=== PATIENT | female | born 1970 | race Caucasian/White ===

== ENCOUNTER 2018-08-29 00:20 | Inpatient (IN) | payer MEDICARE, MEDICAID ==
[~2018-08-29] VITALS: Ht 162.6 cm; Wt 110.7 kg
[2018-08-29] MEDS ORDERED: ASPIRIN 81MG TABLET PO ONE (00:45)
[2018-08-29] MEDS: NITROGLYCERIN 0.4MG TABLET SL SL PRN ×2 (00:51→00:56)
[2018-08-29 01:13] LABS: CHLORIDE 113 mEq/L (98-107); HEMATOCRIT. 29.4 % (36.0-48.0); HEMOGLOBIN. 9.8 g/dL (12.0-16.0); MEAN CORPUSCULAR HEMOGLOBIN 30.3 pg (28.0-32.0); MEAN CORPUSCULAR VOLUME 90.7 fL (81.0-99.0); MEAN PLATELET VOLUME 8.4 fl (7.4-10.4); PLATELET 183 x1000/uL (130-400); RED BLOOD CELL COUNT 3.24 mill/uL (4.2-5.4); RED CELL DISTRIBUTION WIDTH 15.3 % (11.6-14.6)
[2018-08-29 01:14] LABS: BASOPHILS % 1.1 % (0.0-2.0); EOSINOPHILS % 1.9 % (0.0-5.0); LYMPHOCYTES % 39.4 % (20.0-50.0); MONOCYTES % 9.2 % (2.0-8.0); NEUTROPHILS % 48.4 % (40.0-76.0)
[2018-08-29 02:08] LABS: *AMPHETAMINES SCREEN URINE NEGATIVE (NEGATIVE); *BARBITURATES SCREEN URINE NEGATIVE (NEGATIVE); *BENZODIAZEPINES SCREEN URINE NEGATIVE (NEGATIVE); *COCAINE SCREEN URINE NEGATIVE (NEGATIVE)
[2018-08-29 02:09] LABS: CANNABINOID URINE SCREEN NEGATIVE (NEGATIVE); METHADONE URINE SCREEN NEGATIVE (NEGATIVE); OPIATES URINE SCREEN NEGATIVE (NEGATIVE); PHENCYCLIDINE URINE SCREEN NEGATIVE (NEGATIVE)
[2018-08-29] MEDS ORDERED: SODIUM CHLORIDE 0.9% 1,000 ML IV NR (02:15)
[2018-08-29 04:00] VITALS: BP 157/109
[2018-08-29 04:30] VITALS: BP 155/99
[2018-08-29] MEDS ORDERED: LORAZEPAM 1MG TABLET PO PRN (05:15)
[2018-08-29] MEDS ORDERED: NITROGLYCERIN 0.4MG TABLET SL SL PRN (05:15)
[2018-08-29] MEDS ORDERED: DEXTROSE 50% WATER 50ML SYRINGE IV PRN (05:15)
[2018-08-29] MEDS ORDERED: METF-816 MT (05:37)
[2018-08-29] MEDS ORDERED: AMLO5TAB4 MT (05:37)
[2018-08-29] MEDS ORDERED: QUET25TA MT (05:37)
[2018-08-29] MEDS ORDERED: DIVA-18 PO (05:37)
[2018-08-29] MEDS ORDERED: TEGXR2 PO (05:37)
[2018-08-29] MEDS: INSULIN LISPRO 100 UNITS/ML SUBCUT SCH ×4 (05:50→21:00)
[2018-08-29] MEDS: BLOOD SUGAR DIAGNOSTIC STRIP TEST SCH ×4 (05:50→21:57)
[2018-08-29 08:00] VITALS: BP 150/98
[2018-08-29] MEDS: DIVALPROEX SODIUM 250MG DR TABLET PO SCH ×3 (08:27→19:12)
[2018-08-29] MEDS: ASPIRIN 325MG EC TABLET PO SCH (08:28)
[2018-08-29] MEDS: AMLODIPINE 5MG TABLET PO SCH ×2 (08:28→21:15)
[2018-08-29] MEDS: QUETIAPINE FUMARATE 100MG TABLET PO SCH (08:28)
[2018-08-29] MEDS: CARBAMAZEPINE 200MG TABLET PO SCH ×2 (08:28→21:15)
[2018-08-29] MEDS: METOPROLOL TARTRATE 50MG TABLET PO SCH ×2 (08:29→21:16)
[2018-08-29] MEDS ORDERED: CLONIDINE 0.1MG TABLET PO PRN (11:30)
[2018-08-29 12:00] VITALS: BP 124/77
[2018-08-29] MEDS: SODIUM CHLORIDE 0.45% 1,000 ML IV SCH ×2 (15:06→22:05)
[2018-08-29 17:00] VITALS: BP 141/82
[2018-08-29 20:00] VITALS: BP 150/97
[2018-08-29] MEDS ORDERED: ACETAMINOPHEN 325MG TABLET PO PRN (22:00)
[2018-08-30] VITALS: BP 143/79
[2018-08-30 01:51] LABS: CLARITY URINE CLEAR (CLEAR); COLOR URINE YELLOW (YELLOW); KETONES URINE NEGATIVE (NEGATIVE); LEUKOCYTE ESTERASE URINE NEGATIVE (NEGATIVE); NITRITE URINE NEGATIVE (NEGATIVE); OCCULT BLOOD URINE NEGATIVE (NEGATIVE); PROTEIN URINE 1+ (NEGATIVE); SPECIFIC GRAVITY URINE 1.005 (1.005-1.030); UROBILINOGEN URINE 0.2 E.U./dL (0.2-1.0)
[2018-08-30 06:16] LABS: BASOPHILS % 0.9 % (0.0-2.0); EOSINOPHILS % 3.7 % (0.0-5.0); HEMATOCRIT. 30.2 % (36.0-48.0); HEMOGLOBIN. 10.1 g/dL (12.0-16.0); LYMPHOCYTES % 38.8 % (20.0-50.0); MEAN CORPUSCULAR HEMOGLOBIN 30.6 pg (28.0-32.0); MEAN CORPUSCULAR VOLUME 91.5 fL (81.0-99.0); MEAN PLATELET VOLUME 8.7 fl (7.4-10.4); MONOCYTES % 10.5 % (2.0-8.0); NEUTROPHILS % 46.1 % (40.0-76.0); PLATELET 198 x1000/uL (130-400); RED CELL DISTRIBUTION WIDTH 15.3 % (11.6-14.6)
[2018-08-30 06:29] LABS: CHLORIDE 112 mEq/L (98-107)
[2018-08-30 06:37] LABS: PHOSPHORUS 4.6 mg/dL (2.5-4.9)
[2018-08-30 06:41] LABS: CREATINE KINASE 178 IU/L (26-192)
[2018-08-30] MEDS: INSULIN LISPRO 100 UNITS/ML SUBCUT SCH ×3 (06:41→16:34)
[2018-08-30] MEDS: SODIUM CHLORIDE 0.45% 1,000 ML IV SCH (06:41)
[2018-08-30] MEDS: BLOOD SUGAR DIAGNOSTIC STRIP TEST SCH ×3 (06:41→16:33)
[2018-08-30 08:00] VITALS: BP 137/84
[2018-08-30] MEDS: ASPIRIN 325MG EC TABLET PO SCH (09:13)
[2018-08-30] MEDS: AMLODIPINE 5MG TABLET PO SCH (09:13)
[2018-08-30] MEDS: METOPROLOL TARTRATE 50MG TABLET PO SCH (09:13)
[2018-08-30] MEDS: CARBAMAZEPINE 200MG TABLET PO SCH (09:13)
[2018-08-30] MEDS: QUETIAPINE FUMARATE 100MG TABLET PO SCH (09:13)
[2018-08-30] MEDS: THROAT LOZENGES-BENZOCAINE/MENTH/CETYLPYRD CL LOZENGES MM SCH ×2 (10:45→14:45)
[2018-08-30] MEDS: DOCUSATE SODIUM 250MG CAPSULE PO SCH ×2 (10:54→16:34)
[2018-08-30] MEDS: DIVALPROEX SODIUM 250MG DR TABLET PO SCH ×3 (11:10→17:00)
[2018-08-30 12:00] VITALS: BP 126/80
[2018-08-30 15:31] VITALS: BP 126/80
[2018-08-30 16:00] VITALS: BP 130/78
== END 2018-08-30 18:25 | disposition home or self-care (01) | DRG 205 ==
LOC: ER 00:20 → 5WST 02:23 → ENRESERV 03:02
PROVIDERS: ADMIT Internal Medicine; ATTEND Internal Medicine
DX: M94.0 Chondrocostal junction syndrome [Tietze] (principal); G93.41 Metabolic encephalopathy; I24.9 Acute ischemic heart disease, unspecified; E44.1 Mild protein-calorie malnutrition; E87.0 Hyperosmolality and hypernatremia; N17.9 Acute kidney failure, unspecified; Z68.41 Body mass index [BMI] 40.0-44.9, adult; E11.22 Type 2 diabetes mellitus with diabetic chronic kidney disease; E66.09 Other obesity due to excess calories; D64.9 Anemia, unspecified; E87.8 Other disorders of electrolyte and fluid balance, not elsewhere classified; F10.10 Alcohol abuse, uncomplicated; F15.90 Other stimulant use, unspecified, uncomplicated; F17.210 Nicotine dependence, cigarettes, uncomplicated; F25.9 Schizoaffective disorder, unspecified; F31.9 Bipolar disorder, unspecified; F41.0 Panic disorder [episodic paroxysmal anxiety]; G40.909 Epilepsy, unspecified, not intractable, without status epilepticus; G47.33 Obstructive sleep apnea (adult) (pediatric); I12.9 Hypertensive chronic kidney disease with stage 1 through stage 4 chronic kidney disease, or unspecified chronic kidney disease; I25.10 Atherosclerotic heart disease of native coronary artery without angina pectoris; J44.9 Chronic obstructive pulmonary disease, unspecified; N18.3 Chronic kidney disease, stage 3 (moderate); Z59.0 Homelessness; Z82.49 Family history of ischemic heart disease and other diseases of the circulatory system; Z86.73 Personal history of transient ischemic attack (TIA), and cerebral infarction without residual deficits; Z98.84 Bariatric surgery status; I25.2 Old myocardial infarction; Z88.8 Allergy status to other drugs, medicaments and biological substances; Z98.51 Tubal ligation status; Z71.3 Dietary counseling and surveillance
CPT/HCPCS: 36415; 71045; 76770; 80048; 80305; 82550; 82962; 83735; 83880; 84100; 84484; 93005; 93306; 93970; 99285

== ENCOUNTER 2018-09-25 19:01 | Emergency (ER) | payer MEDICARE, MEDICAID ==
[~2018-09-25] VITALS: Ht 167.6 cm; Wt 81.0 kg
[~2018-09-25 19:01] MED LIST: AMLO5TAB4 MT; DIVA-18 PO; QUET25TA MT; TEGXR2 PO
[2018-09-26 00:02] LABS: CHLORIDE 115 mEq/L (98-107)
[2018-09-26 00:05] LABS: BASOPHILS % 0.7 % (0.0-2.0); EOSINOPHILS % 2.5 % (0.0-5.0); HEMATOCRIT. 30.9 % (36.0-48.0); HEMOGLOBIN. 10.5 g/dL (12.0-16.0); LYMPHOCYTES % 48.8 % (20.0-50.0); MEAN CORPUSCULAR HEMOGLOBIN 31.4 pg (28.0-32.0); MEAN CORPUSCULAR VOLUME 92.1 fL (81.0-99.0); MEAN PLATELET VOLUME 8.8 fl (7.4-10.4); MONOCYTES % 11.7 % (2.0-8.0); NEUTROPHILS % 36.3 % (40.0-76.0); PLATELET 162 x1000/uL (130-400); RED BLOOD CELL COUNT 3.35 mill/uL (4.2-5.4); RED CELL DISTRIBUTION WIDTH 14.9 % (11.6-14.6)
[2018-09-26 05:24] VITALS: BP 128/71
== END 2018-09-26 05:33 | disposition home or self-care (01) ==
LOC: ER 19:01
DX: R07.89 Other chest pain (principal); R41.0 Disorientation, unspecified; F15.10 Other stimulant abuse, uncomplicated; I12.9 Hypertensive chronic kidney disease with stage 1 through stage 4 chronic kidney disease, or unspecified chronic kidney disease; N18.9 Chronic kidney disease, unspecified; E87.0 Hyperosmolality and hypernatremia; D64.9 Anemia, unspecified; R79.89 Other specified abnormal findings of blood chemistry; F17.210 Nicotine dependence, cigarettes, uncomplicated; Z71.6 Tobacco abuse counseling; Z86.73 Personal history of transient ischemic attack (TIA), and cerebral infarction without residual deficits
CPT/HCPCS: 36415; 71045; 84484; 85379; 93005; 99284; 99406

== ENCOUNTER 2018-09-28 02:11 | Emergency (ER) | payer MEDICARE, MEDICAID ==
[~2018-09-28] VITALS: Ht 162.6 cm; Wt 100.0 kg
[2018-09-28] MEDS ORDERED: HYDROCODONE/ACETAMINOPHEN 5/325MG TABLET PO ONE (03:30)
[2018-09-28 03:55] LABS: CHLORIDE 115 mEq/L (98-107)
[2018-09-28 03:57] LABS: BASOPHILS % 0.9 % (0.0-2.0); EOSINOPHILS % 2.9 % (0.0-5.0); HEMATOCRIT. 33.4 % (36.0-48.0); HEMOGLOBIN. 11.3 g/dL (12.0-16.0); LYMPHOCYTES % 45.3 % (20.0-50.0); MEAN CORPUSCULAR HEMOGLOBIN 31.1 pg (28.0-32.0); MEAN CORPUSCULAR VOLUME 91.9 fL (81.0-99.0); MEAN PLATELET VOLUME 8.5 fl (7.4-10.4); MONOCYTES % 9.7 % (2.0-8.0); NEUTROPHILS % 41.2 % (40.0-76.0); PLATELET 190 x1000/uL (130-400); RED BLOOD CELL COUNT 3.63 mill/uL (4.2-5.4); RED CELL DISTRIBUTION WIDTH 14.9 % (11.6-14.6)
[2018-09-28 03:58] LABS: ETHANOL BLOOD < 10 mg/dL
[2018-09-28 04:11] LABS: HCG SCREEN NEGATIVE
[2018-09-28 04:36] LABS: CLARITY URINE CLEAR (CLEAR); COLOR URINE YELLOW (YELLOW); KETONES URINE NEGATIVE (NEGATIVE); LEUKOCYTE ESTERASE URINE NEGATIVE (NEGATIVE); NITRITE URINE NEGATIVE (NEGATIVE); OCCULT BLOOD URINE NEGATIVE (NEGATIVE); PROTEIN URINE 2+ (NEGATIVE); SPECIFIC GRAVITY URINE 1.005 (1.005-1.030); UROBILINOGEN URINE 0.2 E.U./dL (0.2-1.0)
[2018-09-28 04:47] LABS: *AMPHETAMINES SCREEN URINE NEGATIVE (NEGATIVE); *BARBITURATES SCREEN URINE NEGATIVE (NEGATIVE); *BENZODIAZEPINES SCREEN URINE NEGATIVE (NEGATIVE); *COCAINE SCREEN URINE NEGATIVE (NEGATIVE); CANNABINOID URINE SCREEN NEGATIVE (NEGATIVE); METHADONE URINE SCREEN NEGATIVE (NEGATIVE); OPIATES URINE SCREEN NEGATIVE (NEGATIVE); PHENCYCLIDINE URINE SCREEN NEGATIVE (NEGATIVE)
[2018-09-28 06:17] VITALS: BP 132/90
== END 2018-09-28 14:11 | disposition home or self-care (01) ==
LOC: ER 02:11
DX: M79.18 Myalgia, other site (principal); T74.21XA Adult sexual abuse, confirmed, initial encounter; Y04.8XXA Assault by other bodily force, initial encounter; Y93.89 Activity, other specified; Y92.9 Unspecified place or not applicable; F25.0 Schizoaffective disorder, bipolar type
CPT/HCPCS: 36415; 80048; 80305; 80307; 80320; 80329; 81025; 84703; 99283; G0480

== ENCOUNTER 2018-09-30 08:46 | Emergency (ER) | payer MEDICARE, MEDICAID ==
[~2018-09-30] VITALS: Ht 167.6 cm; Wt 85.0 kg
[2018-09-30 11:05] LABS: BASOPHILS % 0.9 % (0.0-2.0); HEMATOCRIT. 34.2 % (36.0-48.0); HEMOGLOBIN. 11.4 g/dL (12.0-16.0); LYMPHOCYTES % 39.3 % (20.0-50.0); MEAN CORPUSCULAR HEMOGLOBIN 30.4 pg (28.0-32.0); MEAN CORPUSCULAR VOLUME 91.4 fL (81.0-99.0); MEAN PLATELET VOLUME 8.5 fl (7.4-10.4); MONOCYTES % 10.2 % (2.0-8.0); NEUTROPHILS % 47.6 % (40.0-76.0); PLATELET 196 x1000/uL (130-400); RED BLOOD CELL COUNT 3.74 mill/uL (4.2-5.4); RED CELL DISTRIBUTION WIDTH 14.5 % (11.6-14.6)
[2018-09-30 11:14] LABS: CHLORIDE 111 mEq/L (98-107)
[2018-09-30] MEDS ORDERED: TRAMADOL 50MG TABLET PO ONE (11:45)
[2018-09-30] MEDS ORDERED: ACETAMINOPHEN 325MG TABLET PO ONE (11:45)
[2018-09-30 12:43] VITALS: BP 125/84
== END 2018-09-30 12:49 | disposition home or self-care (01) ==
LOC: ER 08:46
DX: M79.10 Myalgia, unspecified site (principal); E11.65 Type 2 diabetes mellitus with hyperglycemia; N39.0 Urinary tract infection, site not specified; E86.0 Dehydration; F32.9 Major depressive disorder, single episode, unspecified; I25.2 Old myocardial infarction; I10 Essential (primary) hypertension; F14.10 Cocaine abuse, uncomplicated; Z86.73 Personal history of transient ischemic attack (TIA), and cerebral infarction without residual deficits; Z88.8 Allergy status to other drugs, medicaments and biological substances
CPT/HCPCS: 36415; 80048; 84484; 93005; 99284

== ENCOUNTER 2018-10-01 23:42 | Emergency (ER) | payer MEDICARE, MEDICAID ==
[~2018-10-01] VITALS: Ht 172.7 cm; Wt 87.0 kg
[2018-10-02 03:11] LABS: BASOPHILS % 0.7 % (0.0-2.0); EOSINOPHILS % 2.4 % (0.0-5.0); HEMATOCRIT. 32.2 % (36.0-48.0); HEMOGLOBIN. 10.9 g/dL (12.0-16.0); LYMPHOCYTES % 44.4 % (20.0-50.0); MEAN CORPUSCULAR HEMOGLOBIN 30.8 pg (28.0-32.0); MEAN CORPUSCULAR VOLUME 91.3 fL (81.0-99.0); MEAN PLATELET VOLUME 8.6 fl (7.4-10.4); MONOCYTES % 10.6 % (2.0-8.0); NEUTROPHILS % 41.9 % (40.0-76.0); PLATELET 182 x1000/uL (130-400); RED BLOOD CELL COUNT 3.53 mill/uL (4.2-5.4); RED CELL DISTRIBUTION WIDTH 14.4 % (11.6-14.6)
[2018-10-02 03:17] LABS: CHLORIDE 111 mEq/L (98-107)
[2018-10-02 03:21] LABS: ETHANOL BLOOD < 10 mg/dL
[2018-10-02 04:43] VITALS: BP 137/84
== END 2018-10-02 05:16 | disposition home or self-care (01) ==
LOC: ER 23:42
DX: R07.89 Other chest pain (principal); J45.909 Unspecified asthma, uncomplicated; F31.9 Bipolar disorder, unspecified; J44.9 Chronic obstructive pulmonary disease, unspecified; E11.9 Type 2 diabetes mellitus without complications; I10 Essential (primary) hypertension; F15.10 Other stimulant abuse, uncomplicated; F17.200 Nicotine dependence, unspecified, uncomplicated; Z79.899 Other long term (current) drug therapy; Z88.8 Allergy status to other drugs, medicaments and biological substances
CPT/HCPCS: 36415; 71045; 80320; 84484; 85379; 93005; 99284; G0480

== ENCOUNTER 2018-10-02 09:08 | Emergency (ER) | payer MEDICARE, MEDICAID ==
[~2018-10-02] VITALS: Ht 162.6 cm; Wt 100.0 kg
[2018-10-02 09:58] LABS: BASOPHILS % 1.1 % (0.0-2.0); EOSINOPHILS % 1.1 % (0.0-5.0); HEMATOCRIT. 32.9 % (36.0-48.0); HEMOGLOBIN. 11.2 g/dL (12.0-16.0); MEAN CORPUSCULAR HEMOGLOBIN 31.1 pg (28.0-32.0); MEAN CORPUSCULAR VOLUME 91.2 fL (81.0-99.0); MEAN PLATELET VOLUME 8.8 fl (7.4-10.4); MONOCYTES % 10.5 % (2.0-8.0); NEUTROPHILS % 53.3 % (40.0-76.0); PLATELET 183 x1000/uL (130-400); RED BLOOD CELL COUNT 3.61 mill/uL (4.2-5.4); RED CELL DISTRIBUTION WIDTH 14.5 % (11.6-14.6)
[2018-10-02 10:12] LABS: CHLORIDE 110 mEq/L (98-107)
[2018-10-02 10:17] LABS: ETHANOL BLOOD < 10 mg/dL
[2018-10-02 11:00] VITALS: BP 137/86
== END 2018-10-02 12:00 | disposition home or self-care (01) ==
LOC: ER 09:08
DX: M79.18 Myalgia, other site (principal); R11.2 Nausea with vomiting, unspecified; N23 Unspecified renal colic; J45.909 Unspecified asthma, uncomplicated; F31.9 Bipolar disorder, unspecified; J44.9 Chronic obstructive pulmonary disease, unspecified; E11.9 Type 2 diabetes mellitus without complications; I10 Essential (primary) hypertension; F15.10 Other stimulant abuse, uncomplicated; Z88.8 Allergy status to other drugs, medicaments and biological substances; Z79.899 Other long term (current) drug therapy; Z59.0 Homelessness
CPT/HCPCS: 36415; 71045; 80320; 81025; 84484; 93005; 99284; G0480

== ENCOUNTER 2018-10-02 15:04 | Emergency (ER) | payer MEDICARE, MEDICAID ==
[~2018-10-02] VITALS: Ht 165.1 cm; Wt 100.0 kg
[2018-10-02 16:29] VITALS: BP 158/83
== END 2018-10-02 17:19 | disposition left against medical advice (07) ==
LOC: ER 15:04
DX: R45.851 Suicidal ideations (principal); J45.909 Unspecified asthma, uncomplicated; J44.9 Chronic obstructive pulmonary disease, unspecified; E11.9 Type 2 diabetes mellitus without complications; I10 Essential (primary) hypertension; F15.10 Other stimulant abuse, uncomplicated; F12.10 Cannabis abuse, uncomplicated; Z79.899 Other long term (current) drug therapy; Z59.0 Homelessness
CPT/HCPCS: 99281

== ENCOUNTER 2018-10-02 23:06 | Emergency (ER) | payer MEDICARE, MEDICAID ==
[~2018-10-02] VITALS: Ht 162.6 cm; Wt 91.0 kg
[2018-10-03 02:44] VITALS: BP 160/83
== END 2018-10-03 03:29 | disposition left against medical advice (07) ==
LOC: ER 23:06
DX: Z53.21 Procedure and treatment not carried out due to patient leaving prior to being seen by health care provider (principal)
CPT/HCPCS: 93005

== ENCOUNTER 2018-10-24 21:03 | Emergency (ER) | payer MEDICARE, MEDICAID ==
[~2018-10-24] VITALS: Ht 162.6 cm; Wt 100.0 kg
[2018-10-24] MEDS: LORAZEPAM 2MG/ML CPJ IV ONE (23:10)
[2018-10-24] MEDS: DIPHENHYDRAMINE 50MG/ML VIAL IV ONE (23:10)
[2018-10-24] MEDS: OLANZAPINE 10 MG/VIAL IM ONE (23:10)
[2018-10-24 23:56] LABS: *AMPHETAMINES SCREEN URINE NEGATIVE (NEGATIVE); *BARBITURATES SCREEN URINE NEGATIVE (NEGATIVE); *BENZODIAZEPINES SCREEN URINE NEGATIVE (NEGATIVE)
[2018-10-24 23:57] LABS: CANNABINOID URINE SCREEN NEGATIVE (NEGATIVE); METHADONE URINE SCREEN NEGATIVE (NEGATIVE); OPIATES URINE SCREEN NEGATIVE (NEGATIVE); PHENCYCLIDINE URINE SCREEN NEGATIVE (NEGATIVE)
[2018-10-24 23:59] LABS: *COCAINE SCREEN URINE PRESUMTIVE POSITIVE (NEGATIVE)
[2018-10-25 06:30] VITALS: BP 125/61
[2018-10-25] MEDS: ACETAMINOPHEN 325MG TABLET PO ONE (09:10)
== END 2018-10-25 10:10 | disposition home or self-care (01) ==
LOC: ER 21:03
DX: F25.9 Schizoaffective disorder, unspecified (principal); F30.9 Manic episode, unspecified; F14.129 Cocaine abuse with intoxication, unspecified; E11.9 Type 2 diabetes mellitus without complications; I10 Essential (primary) hypertension; F12.10 Cannabis abuse, uncomplicated; F15.10 Other stimulant abuse, uncomplicated; Z86.73 Personal history of transient ischemic attack (TIA), and cerebral infarction without residual deficits; Z79.899 Other long term (current) drug therapy; Z88.8 Allergy status to other drugs, medicaments and biological substances
CPT/HCPCS: 36415; 80048; 80305; 96372; 96374; 96375; 99283; J1200; J2060; J3490

== ENCOUNTER 2018-11-04 18:15 | Emergency (ER) | payer MEDICARE, MEDICAID ==
[~2018-11-04] VITALS: Ht 165.1 cm; Wt 91.0 kg
[2018-11-04] MEDS: NITROGLYCERIN 0.4MG TABLET SL SL PRN ×2 (18:43→19:05)
[2018-11-04 19:07] LABS: BASOPHILS % 0.7 % (0.0-2.0); EOSINOPHILS % 5.5 % (0.0-5.0); HEMATOCRIT. 30.1 % (36.0-48.0); LYMPHOCYTES % 40.6 % (20.0-50.0); MEAN CORPUSCULAR VOLUME 89.8 fL (81.0-99.0); MEAN PLATELET VOLUME 8.1 fl (7.4-10.4); MONOCYTES % 9.3 % (2.0-8.0); NEUTROPHILS % 43.9 % (40.0-76.0); PLATELET 205 x1000/uL (130-400); RED BLOOD CELL COUNT 3.35 mill/uL (4.2-5.4); RED CELL DISTRIBUTION WIDTH 13.7 % (11.6-14.6)
[2018-11-04 19:15] LABS: INR 0.9; PARTIAL THROMBOPLASTIN TIME 24.9 sec (23.4-31.0); PROTHROMBIN TIME 9.4 sec (9.6-11.0)
[2018-11-04 19:17] LABS: CHLORIDE 105 mEq/L (98-107)
[2018-11-04 19:19] LABS: HCG SCREEN NEGATIVE
[2018-11-04 19:21] LABS: ETHANOL BLOOD < 10 mg/dL
[2018-11-05 06:30] VITALS: BP 135/70
== END 2018-11-05 08:04 | disposition home or self-care (01) ==
LOC: ER 18:15
DX: R07.89 Other chest pain (principal); E11.9 Type 2 diabetes mellitus without complications; I10 Essential (primary) hypertension; F14.10 Cocaine abuse, uncomplicated; F12.10 Cannabis abuse, uncomplicated; F15.10 Other stimulant abuse, uncomplicated; Z79.899 Other long term (current) drug therapy; Z88.8 Allergy status to other drugs, medicaments and biological substances
CPT/HCPCS: 36415; 71045; 80320; 83880; 84484; 84703; 93005; 99284; G0480

== ENCOUNTER 2018-11-08 17:25 | Emergency (ER) | payer MEDICARE, MEDICAID ==
[~2018-11-08] VITALS: Ht 167.6 cm; Wt 73.0 kg
[2018-11-08] MEDS ORDERED: LORAZEPAM 2MG/ML CPJ IV ONE (18:15)
[2018-11-08] MEDS ORDERED: ASPIRIN 81MG TABLET PO ONE (18:15)
[2018-11-08] MEDS ORDERED: NITROGLYCERIN 0.4MG TABLET SL SL PRN (18:15)
[2018-11-08 18:43] LABS: BASOPHILS % 0.4 % (0.0-2.0); EOSINOPHILS % 2.9 % (0.0-5.0); HEMATOCRIT. 34.1 % (36.0-48.0); HEMOGLOBIN. 11.4 g/dL (12.0-16.0); LYMPHOCYTES % 24.1 % (20.0-50.0); MEAN CORPUSCULAR HEMOGLOBIN 29.8 pg (28.0-32.0); MEAN PLATELET VOLUME 8.5 fl (7.4-10.4); MONOCYTES % 7.5 % (2.0-8.0); NEUTROPHILS % 65.1 % (40.0-76.0); PLATELET 221 x1000/uL (130-400); RED BLOOD CELL COUNT 3.83 mill/uL (4.2-5.4); RED CELL DISTRIBUTION WIDTH 13.7 % (11.6-14.6)
[2018-11-08 18:46] LABS: CHLORIDE 104 mEq/L (98-107)
[2018-11-08 20:45] VITALS: BP 104/60
== END 2018-11-08 21:38 | disposition home or self-care (01) ==
LOC: ER 18:35
DX: R07.89 Other chest pain (principal); I10 Essential (primary) hypertension; E11.9 Type 2 diabetes mellitus without complications; F12.10 Cannabis abuse, uncomplicated; F14.10 Cocaine abuse, uncomplicated; F15.10 Other stimulant abuse, uncomplicated; F17.200 Nicotine dependence, unspecified, uncomplicated; Z79.899 Other long term (current) drug therapy; Z88.8 Allergy status to other drugs, medicaments and biological substances
CPT/HCPCS: 36415; 71045; 80053; 83880; 84484; 85025; 93005; 96374; 99284; J2060

== ENCOUNTER 2019-01-27 10:28 | Emergency (ER) | payer MEDICARE, MEDICAID ==
[~2019-01-27] VITALS: Ht 165.1 cm; Wt 82.0 kg
[2019-01-27 10:45] VITALS: BP 136/94
== END 2019-01-27 11:48 | disposition home or self-care (01) ==
LOC: ER 10:28
DX: R10.9 Unspecified abdominal pain (principal); R07.9 Chest pain, unspecified; M54.9 Dorsalgia, unspecified; R51 Headache; I10 Essential (primary) hypertension; E11.9 Type 2 diabetes mellitus without complications; F20.9 Schizophrenia, unspecified; F14.10 Cocaine abuse, uncomplicated; F15.10 Other stimulant abuse, uncomplicated; F12.10 Cannabis abuse, uncomplicated
CPT/HCPCS: 99283

== ENCOUNTER 2019-01-28 23:30 | Emergency (ER) | payer MEDICARE, MEDICAID ==
[~2019-01-28] VITALS: Ht 167.6 cm; Wt 91.0 kg
[2019-01-28 23:33] VITALS: BP 143/81
[2019-01-29] MEDS ORDERED: ACETAMINOPHEN 500MG TABLET PO ONE (00:15)
[2019-01-29] MEDS ORDERED: IBUPROFEN 600MG TABLET PO ONE (00:15)
== END 2019-01-29 06:00 | disposition home or self-care (01) ==
LOC: ER 23:30
DX: M25.569 Pain in unspecified knee (principal); I10 Essential (primary) hypertension; E11.9 Type 2 diabetes mellitus without complications; M79.7 Fibromyalgia; Z59.0 Homelessness
CPT/HCPCS: 99283

== ENCOUNTER 2019-01-30 11:47 | Emergency (ER) | payer MEDICARE, MEDICAID ==
[~2019-01-30] VITALS: Ht 162.6 cm; Wt 100.0 kg
[2019-01-30 12:35] LABS: HEMATOCRIT. 29.2 % (36.0-48.0); HEMOGLOBIN. 9.8 g/dL (12.0-16.0); MEAN CORPUSCULAR HEMOGLOBIN 29.2 pg (28.0-32.0); MEAN PLATELET VOLUME 8.2 fl (7.4-10.4); PLATELET 316 x1000/uL (130-400); RED BLOOD CELL COUNT 3.36 mill/uL (4.2-5.4); RED CELL DISTRIBUTION WIDTH 15.6 % (11.6-14.6)
[2019-01-30 12:41] LABS: CHLORIDE 110 mEq/L (98-107)
[2019-01-30 12:45] LABS: ETHANOL BLOOD < 10 mg/dL
[2019-01-30 13:04] LABS: PLATELET ESTIMATE NORMAL
[2019-01-30 14:26] LABS: OPIATES URINE SCREEN NEGATIVE (NEGATIVE); PHENCYCLIDINE URINE SCREEN NEGATIVE (NEGATIVE)
[2019-01-30 14:27] LABS: *AMPHETAMINES SCREEN URINE NEGATIVE (NEGATIVE); *BARBITURATES SCREEN URINE NEGATIVE (NEGATIVE); *BENZODIAZEPINES SCREEN URINE NEGATIVE (NEGATIVE); *COCAINE SCREEN URINE NEGATIVE (NEGATIVE); CANNABINOID URINE SCREEN NEGATIVE (NEGATIVE); METHADONE URINE SCREEN NEGATIVE (NEGATIVE)
[2019-01-30 15:23] VITALS: BP 132/85
== END 2019-01-30 16:59 | disposition home or self-care (01) ==
LOC: ER 12:15
DX: R07.89 Other chest pain (principal); R45.851 Suicidal ideations; F20.9 Schizophrenia, unspecified
CPT/HCPCS: 36415; 80048; 80305; 80307; 80320; 80329; 84484; 93005; 99284; G0480

== ENCOUNTER 2019-02-13 01:33 | Inpatient (IN) | payer MEDICARE, MEDICAID ==
[~2019-02-13] VITALS: Ht 162.6 cm; Wt 103.0 kg
[2019-02-13 02:59] LABS: CHLORIDE 106 mEq/L (98-107)
[2019-02-13 03:00] LABS: HCG SCREEN NEGATIVE
[2019-02-13 03:01] LABS: BASOPHILS % 0.6 % (0.0-2.0); HEMATOCRIT. 28.9 % (36.0-48.0); HEMOGLOBIN. 9.6 g/dL (12.0-16.0); LYMPHOCYTES % 39.4 % (20.0-50.0); MEAN CORPUSCULAR HEMOGLOBIN 28.7 pg (28.0-32.0); MEAN CORPUSCULAR VOLUME 86.2 fL (81.0-99.0); MEAN PLATELET VOLUME 8.2 fl (7.4-10.4); MONOCYTES % 9.5 % (2.0-8.0); NEUTROPHILS % 47.5 % (40.0-76.0); PLATELET 208 x1000/uL (130-400); RED BLOOD CELL COUNT 3.35 mill/uL (4.2-5.4); RED CELL DISTRIBUTION WIDTH 15.1 % (11.6-14.6)
[2019-02-13] MEDS ORDERED: GUAIFENESIN 200MG/10ML SUGAR FREE UDC PO PRN (06:00)
[2019-02-13] MEDS ORDERED: NA PHOS,M-B/NA PHOS,DI-BA ENEMA 118ML PR PRN (06:00)
[2019-02-13] MEDS ORDERED: LORAZEPAM 2MG/ML CPJ IV PRN (06:00)
[2019-02-13] MEDS ORDERED: HYDROCODONE/ACETAMINOPHEN 10/325MG TABLET PO PRN (06:00)
[2019-02-13] MEDS ORDERED: ONDANSETRON HCL 4MG/2ML INJ IV PRN (06:00)
[2019-02-13] MEDS ORDERED: IPRATROPIUM/ALBUTEROL 0.5-3(2.5)MG/3ML NEB HHN PRN (06:00)
[2019-02-13] MEDS ORDERED: MORPHINE SULFATE 2 MG/ML CPJ (NOT FOR IM USE) IV PRN (06:00)
[2019-02-13] MEDS ORDERED: DIPHENHYDRAMINE 50MG/ML VIAL IV PRN (06:00)
[2019-02-13] MEDS ORDERED: ACETAMINOPHEN 325MG TABLET PO PRN (06:00)
[2019-02-13] MEDS ORDERED: CLONIDINE 0.1MG TABLET PO PRN (06:00)
[2019-02-13] MEDS ORDERED: MAGNESIUM/ALUMINUM HYDROXIDE/SIMETHICONE 30ML UDC PO PRN (06:00)
[2019-02-13] MEDS ORDERED: DOCUSATE SODIUM 100MG CAPSULE PO PRN (06:00)
[2019-02-13] MEDS ORDERED: HYDRALAZINE 20MG/ML VIAL IV PRN (06:00)
[2019-02-13 06:16] LABS: *AMPHETAMINES SCREEN URINE NEGATIVE (NEGATIVE); *BARBITURATES SCREEN URINE NEGATIVE (NEGATIVE); *BENZODIAZEPINES SCREEN URINE NEGATIVE (NEGATIVE); *COCAINE SCREEN URINE NEGATIVE (NEGATIVE)
[2019-02-13 06:17] LABS: METHADONE URINE SCREEN NEGATIVE (NEGATIVE); OPIATES URINE SCREEN NEGATIVE (NEGATIVE); PHENCYCLIDINE URINE SCREEN NEGATIVE (NEGATIVE)
[2019-02-13 06:20] LABS: CANNABINOID URINE SCREEN NEGATIVE (NEGATIVE)
[2019-02-13 07:04] LABS: CREATINE KINASE 66 IU/L (26-192)
[2019-02-13 07:05] LABS: CREATINE KINASE MB FRACTION 1.1 ng/mL (0.5-3.6)
[2019-02-13 08:32] VITALS: BP 121/83
[2019-02-13] MEDS ORDERED: CARBAMAZEPINE PO SCH (09:00)
[2019-02-13] MEDS: ENOXAPARIN 30MG/0.3ML SYR SUBCUT SCH (09:45)
[2019-02-13] MEDS: ASPIRIN 81MG EC TABLET PO SCH (09:45)
[2019-02-13] MEDS: DIVALPROEX SODIUM 500MG ER TABLET PO SCH ×3 (09:46→21:18)
[2019-02-13] MEDS: AMLODIPINE 5MG TABLET PO SCH (09:46)
[2019-02-13 10:25] VITALS: BP 121/83
[2019-02-13 12:15] VITALS: BP 120/73
[2019-02-13] MEDS: SODIUM CHLORIDE 0.9% INJ 3ML FLUSH IVF SCH ×2 (15:00→21:18)
[2019-02-13 15:56] VITALS: BP 156/101
[2019-02-13 16:34] LABS: CLARITY URINE CLEAR (CLEAR); COLOR URINE YELLOW (YELLOW); KETONES URINE NEGATIVE (NEGATIVE); LEUKOCYTE ESTERASE URINE NEGATIVE (NEGATIVE); NITRITE URINE NEGATIVE (NEGATIVE); OCCULT BLOOD URINE NEGATIVE (NEGATIVE); PROTEIN URINE 1+ (NEGATIVE); SPECIFIC GRAVITY URINE 1.004 (1.005-1.030); UROBILINOGEN URINE 0.2 E.U./dL (0.2-1.0)
[2019-02-13 17:58] LABS: CREATINE KINASE 65 IU/L (26-192)
[2019-02-13 17:59] LABS: CREATINE KINASE MB FRACTION 1.3 ng/mL (0.5-3.6)
[2019-02-13 20:37] VITALS: BP 122/79
[2019-02-13] MEDS ORDERED: QUETIAPINE FUMARATE 25MG TABLET PO SCH (21:00)
[2019-02-14 00:36] VITALS: BP 128/56
[2019-02-14 04:00] VITALS: BP 131/87
[2019-02-14] MEDS: SODIUM CHLORIDE 0.9% INJ 3ML FLUSH IVF SCH ×2 (05:06→14:00)
[2019-02-14] MEDS: DIVALPROEX SODIUM 500MG ER TABLET PO SCH ×2 (05:06→14:00)
[2019-02-14 07:48] LABS: BASOPHILS % 0.5 % (0.0-2.0); EOSINOPHILS % 2.9 % (0.0-5.0); HEMATOCRIT. 30.3 % (36.0-48.0); HEMOGLOBIN. 10.1 g/dL (12.0-16.0); MEAN CORPUSCULAR HEMOGLOBIN 28.5 pg (28.0-32.0); MEAN CORPUSCULAR VOLUME 85.8 fL (81.0-99.0); MEAN PLATELET VOLUME 8.5 fl (7.4-10.4); MONOCYTES % 10.2 % (2.0-8.0); NEUTROPHILS % 42.4 % (40.0-76.0); PLATELET 204 x1000/uL (130-400); RED BLOOD CELL COUNT 3.53 mill/uL (4.2-5.4); RED CELL DISTRIBUTION WIDTH 15.7 % (11.6-14.6)
[2019-02-14 08:16] LABS: CHLORIDE 107 mEq/L (98-107)
[2019-02-14 08:25] LABS: LDL CHOLESTEROL 83 mg/dL (5-100)
[2019-02-14 08:26] LABS: HDL CHOLESTEROL 54 mg/dL (40-59); T4 FREE 1.04 ng/dL (0.76-1.46)
[2019-02-14 08:35] VITALS: BP 146/99
[2019-02-14] MEDS: ENOXAPARIN 30MG/0.3ML SYR SUBCUT SCH ×2 (09:00→09:24)
[2019-02-14] MEDS: ASPIRIN 81MG EC TABLET PO SCH (09:23)
[2019-02-14] MEDS: AMLODIPINE 5MG TABLET PO SCH (09:23)
[2019-02-14 11:54] VITALS: BP 139/81
[2019-02-14 12:36] VITALS: BP 139/81
[2019-02-14 15:23] VITALS: BP 150/103
[2019-02-14] MEDS ORDERED: ENOXAPARIN 30MG/0.3ML SYR SUBCUT SCH (21:00)
[2019-02-15 09:11] LABS: COMPLEMENT C3 126 mg/dL (82-167)
[2019-02-15 17:10] LABS: ANTI-NUCLEAR ANTIBODIES DIRECT Negative (Negative)
[2019-02-15] MEDS ORDERED: ABIL10 PO (17:26)
[2019-02-15] MEDS ORDERED: METO-396 PO (17:26)
[2019-02-15] MEDS ORDERED: METF-414 PO (17:26)
[2019-02-15] MEDS ORDERED: TRAZ150T78 PO (17:26)
== END 2019-02-14 16:05 | disposition home or self-care (01) | DRG 391 ==
LOC: ER 01:33 → 6WST 04:52 → EDBEDREQ 04:53 → EDBEDREQTM 04:53 → ENRESERV 07:11
PROVIDERS: ADMIT Internal Medicine; ATTEND Internal Medicine
DX: K21.9 Gastro-esophageal reflux disease without esophagitis (principal); N17.0 Acute kidney failure with tubular necrosis; E44.0 Moderate protein-calorie malnutrition; D64.9 Anemia, unspecified; E11.22 Type 2 diabetes mellitus with diabetic chronic kidney disease; F17.210 Nicotine dependence, cigarettes, uncomplicated; F20.9 Schizophrenia, unspecified; F31.9 Bipolar disorder, unspecified; I12.9 Hypertensive chronic kidney disease with stage 1 through stage 4 chronic kidney disease, or unspecified chronic kidney disease; M79.7 Fibromyalgia; N18.9 Chronic kidney disease, unspecified; Z59.0 Homelessness; Z79.899 Other long term (current) drug therapy; I25.2 Old myocardial infarction; Z68.39 Body mass index [BMI] 39.0-39.9, adult
CPT/HCPCS: 36415; 71045; 76770; 80061; 80305; 81003; 82550; 82553; 83880; 84439; 84443; 84484; 84703; 86038; 86160; 93005; 93306; 99285; J1650

== ENCOUNTER 2019-02-15 08:15 | Inpatient (IN) | payer MEDICARE ==
[~2019-02-15] VITALS: Ht 162.6 cm; Wt 96.2 kg
[2019-02-15] MEDS ORDERED: MORPHINE SULFATE 4 MG/ML CPJ (NOT FOR IM USE) IV STA (08:27)
[2019-02-15 09:22] LABS: CHLORIDE 104 mEq/L (98-107)
[2019-02-15 09:27] LABS: BASOPHILS % 0.8 % (0.0-2.0); EOSINOPHILS % 2.1 % (0.0-5.0); HEMATOCRIT. 32.2 % (36.0-48.0); HEMOGLOBIN. 10.8 g/dL (12.0-16.0); LYMPHOCYTES % 28.9 % (20.0-50.0); MEAN CORPUSCULAR HEMOGLOBIN 28.8 pg (28.0-32.0); MEAN CORPUSCULAR VOLUME 86.2 fL (81.0-99.0); MEAN PLATELET VOLUME 8.4 fl (7.4-10.4); MONOCYTES % 8.9 % (2.0-8.0); NEUTROPHILS % 59.3 % (40.0-76.0); PLATELET 218 x1000/uL (130-400); RED BLOOD CELL COUNT 3.74 mill/uL (4.2-5.4); RED CELL DISTRIBUTION WIDTH 15.9 % (11.6-14.6)
[2019-02-15] MEDS ORDERED: ASPIRIN 325MG EC TABLET PO ONE (10:00)
[2019-02-15 14:44] VITALS: BP 142/92
[2019-02-15 15:54] VITALS: BP 142/92
[2019-02-15] MEDS ORDERED: HYDROCODONE/ACETAMINOPHEN 5/325MG TABLET PO PRN ×2 (17:00→19:15)
[2019-02-15] MEDS ORDERED: MORPHINE SULFATE 4 MG/ML CPJ (NOT FOR IM USE) IV NR (17:15)
[2019-02-15] MEDS ORDERED: BISACODYL 5MG TABLET PO NR (17:15)
[2019-02-15] MEDS ORDERED: METF-414 PO (17:26)
[2019-02-15] MEDS ORDERED: METO-396 PO (17:26)
[2019-02-15] MEDS ORDERED: TRAZ150T78 PO (17:26)
[2019-02-15] MEDS ORDERED: ABIL10 PO (17:26)
[2019-02-15] MEDS ORDERED: PNEUMOCOCCAL 23-VAL P-SAC VAC 0.5 ML IM ONE (17:30)
[2019-02-15] MEDS ORDERED: INFLUENZA VIRUS VACCINE(AFLURIA) 0.5ML SYR IM ONE (17:45)
[2019-02-15] MEDS ORDERED: MAGNESIUM CITRATE 300ML SOLUTION PO NR (18:00)
[2019-02-15] MEDS: SODIUM CHLORIDE 0.9% 1,000 ML IV SCH (19:08)
[2019-02-15] MEDS ORDERED: MEDICATION NOT ON FORMULARY EA (Metoprolol Succinate 1 TAB) PO SCH (19:15)
[2019-02-15] MEDS ORDERED: IPRATROPIUM/ALBUTEROL 0.5-3(2.5)MG/3ML NEB HHN PRN (19:15)
[2019-02-15] MEDS ORDERED: CLONIDINE 0.1MG TABLET PO PRN (19:15)
[2019-02-15] MEDS ORDERED: MAGNESIUM/ALUMINUM HYDROXIDE/SIMETHICONE 30ML UDC PO PRN (19:15)
[2019-02-15] MEDS ORDERED: NA PHOS,M-B/NA PHOS,DI-BA ENEMA 118ML PR PRN (19:15)
[2019-02-15] MEDS ORDERED: DIPHENHYDRAMINE 50MG/ML VIAL IV PRN (19:15)
[2019-02-15] MEDS ORDERED: DEXTROSE 50% WATER 50ML SYRINGE IV PRN (19:15)
[2019-02-15] MEDS ORDERED: GUAIFENESIN 200MG/10ML SUGAR FREE UDC PO PRN (19:15)
[2019-02-15] MEDS ORDERED: DOCUSATE SODIUM 100MG CAPSULE PO PRN (19:15)
[2019-02-15 20:00] VITALS: BP 140/70
[2019-02-15] MEDS: AMLODIPINE 5MG TABLET PO SCH (20:00)
[2019-02-15] MEDS: BLOOD SUGAR DIAGNOSTIC STRIP TEST SCH (20:57)
[2019-02-15] MEDS: METOPROLOL TARTRATE 25MG TABLET PO SCH (21:00)
[2019-02-15] MEDS ORDERED: ARIPIPRAZOLE 10MG TABLET PO SCH (21:00)
[2019-02-15] MEDS: INSULIN LISPRO 100 UNITS/ML SUBCUT SCH (21:00)
[2019-02-15] MEDS: CARBAMAZEPINE 200MG TABLET PO SCH (21:01)
[2019-02-15] MEDS: QUETIAPINE FUMARATE 25MG TABLET PO SCH (21:01)
[2019-02-15] MEDS: TRAZODONE HCL 50MG TABLET PO SCH (21:01)
[2019-02-15] MEDS: DIVALPROEX SODIUM 250MG DR TABLET PO SCH (21:02)
[2019-02-15] MEDS: ENOXAPARIN 30MG/0.3ML SYR SUBCUT SCH (21:03)
[2019-02-15] MEDS: ARIPIPRAZOLE 5MG TABLET PO SCH (22:03)
[2019-02-15] MEDS: SODIUM CHLORIDE 0.9% INJ 3ML FLUSH IVF SCH (22:06)
[2019-02-16] VITALS: BP 100/57
[2019-02-16 04:00] VITALS: BP 113/63
[2019-02-16] MEDS: BLOOD SUGAR DIAGNOSTIC STRIP TEST SCH ×4 (06:08→20:51)
[2019-02-16] MEDS: SODIUM CHLORIDE 0.9% INJ 3ML FLUSH IVF SCH ×3 (06:16→21:00)
[2019-02-16] MEDS: DIVALPROEX SODIUM 250MG DR TABLET PO SCH ×3 (06:16→21:00)
[2019-02-16] MEDS: INSULIN LISPRO 100 UNITS/ML SUBCUT SCH ×4 (06:16→20:57)
[2019-02-16 06:20] LABS: BASOPHILS % 0.6 % (0.0-2.0); EOSINOPHILS % 3.6 % (0.0-5.0); HEMATOCRIT. 29.4 % (36.0-48.0); HEMOGLOBIN. 9.8 g/dL (12.0-16.0); LYMPHOCYTES % 35.3 % (20.0-50.0); MEAN CORPUSCULAR HEMOGLOBIN 28.7 pg (28.0-32.0); MEAN CORPUSCULAR VOLUME 86.1 fL (81.0-99.0); MEAN PLATELET VOLUME 8.7 fl (7.4-10.4); NEUTROPHILS % 50.5 % (40.0-76.0); PLATELET 178 x1000/uL (130-400); RED BLOOD CELL COUNT 3.41 mill/uL (4.2-5.4); RED CELL DISTRIBUTION WIDTH 15.3 % (11.6-14.6)
[2019-02-16 06:38] LABS: CHLORIDE 106 mEq/L (98-107)
[2019-02-16 06:58] LABS: LDL CHOLESTEROL 71 mg/dL (5-100)
[2019-02-16 07:01] LABS: HDL CHOLESTEROL 48 mg/dL (40-59)
[2019-02-16 08:00] VITALS: BP 125/71
[2019-02-16] MEDS: CARBAMAZEPINE 200MG TABLET PO SCH ×2 (08:50→20:50)
[2019-02-16] MEDS: ONDANSETRON HCL 4MG/2ML INJ IV PRN ×2 (08:50→16:01)
[2019-02-16] MEDS: ENOXAPARIN 30MG/0.3ML SYR SUBCUT SCH ×2 (08:50→20:51)
[2019-02-16] MEDS: ARIPIPRAZOLE 5MG TABLET PO SCH ×2 (08:51→20:50)
[2019-02-16] MEDS: METFORMIN HCL 500MG TABLET PO SCH ×2 (08:51→17:47)
[2019-02-16] MEDS: AMLODIPINE 5MG TABLET PO SCH (08:51)
[2019-02-16] MEDS: METOPROLOL TARTRATE 25MG TABLET PO SCH ×2 (08:51→20:52)
[2019-02-16] MEDS ORDERED: BISACODYL 5MG TABLET PO PRN (11:15)
[2019-02-16] MEDS: LACTULOSE 20G/30ML UDC PO PRN (11:46)
[2019-02-16 12:01] VITALS: BP 110/69
[2019-02-16] MEDS: SODIUM CHLORIDE 0.9% 1,000 ML IV SCH (14:50)
[2019-02-16 16:00] VITALS: BP 127/76
[2019-02-16 20:00] VITALS: BP 128/79
[2019-02-16] MEDS: QUETIAPINE FUMARATE 25MG TABLET PO SCH (20:49)
[2019-02-16] MEDS: TRAZODONE HCL 50MG TABLET PO SCH (20:50)
[2019-02-17] VITALS: BP 116/72
[2019-02-17 04:00] VITALS: BP 115/62
[2019-02-17] MEDS: SODIUM CHLORIDE 0.9% 1,000 ML IV SCH (04:28)
[2019-02-17] MEDS: DIVALPROEX SODIUM 250MG DR TABLET PO SCH (06:26)
[2019-02-17] MEDS: INSULIN LISPRO 100 UNITS/ML SUBCUT SCH ×2 (06:27→12:07)
[2019-02-17] MEDS: BLOOD SUGAR DIAGNOSTIC STRIP TEST SCH ×2 (06:27→12:06)
[2019-02-17] MEDS: SODIUM CHLORIDE 0.9% INJ 3ML FLUSH IVF SCH (06:27)
[2019-02-17 08:00] VITALS: BP 114/67
[2019-02-17] MEDS: CARBAMAZEPINE 200MG TABLET PO SCH (08:48)
[2019-02-17] MEDS: METFORMIN HCL 500MG TABLET PO SCH (08:48)
[2019-02-17] MEDS: ARIPIPRAZOLE 5MG TABLET PO SCH (08:48)
[2019-02-17] MEDS: AMLODIPINE 5MG TABLET PO SCH (08:49)
[2019-02-17] MEDS: METOPROLOL TARTRATE 25MG TABLET PO SCH (08:49)
[2019-02-17] MEDS: ENOXAPARIN 30MG/0.3ML SYR SUBCUT SCH (08:50)
[2019-02-17] MEDS: LACTULOSE 20G/30ML UDC PO PRN (08:50)
[2019-02-17] MEDS: ONDANSETRON HCL 4MG/2ML INJ IV PRN (10:25)
[2019-02-17 15:08] VITALS: BP 114/67
== END 2019-02-17 15:40 | DRG 392 ==
LOC: ER 08:28 → EDBEDREQ 08:30 → 5WST 10:04 → EDBEDREQ 10:10 → EDBEDREQTM 10:10 → ENRESERV 13:53
PROVIDERS: ADMIT Family Medicine; ATTEND Family Medicine
DX: K21.9 Gastro-esophageal reflux disease without esophagitis (principal); I16.1 Hypertensive emergency; E44.0 Moderate protein-calorie malnutrition; I12.9 Hypertensive chronic kidney disease with stage 1 through stage 4 chronic kidney disease, or unspecified chronic kidney disease; K59.00 Constipation, unspecified; F20.9 Schizophrenia, unspecified; F31.9 Bipolar disorder, unspecified; N18.9 Chronic kidney disease, unspecified; R73.9 Hyperglycemia, unspecified; E66.9 Obesity, unspecified; M79.7 Fibromyalgia; G89.29 Other chronic pain; J44.9 Chronic obstructive pulmonary disease, unspecified; F17.210 Nicotine dependence, cigarettes, uncomplicated; Z79.899 Other long term (current) drug therapy; Z68.36 Body mass index [BMI] 36.0-36.9, adult
CPT/HCPCS: 36415; 71045; 80061; 82962; 83880; 84484; 93005; 96374; 97161; 99285; J1650; J2270; J2405; J7030

== ENCOUNTER 2019-02-19 02:16 | Emergency (ER) | payer MEDICARE ==
[~2019-02-19] VITALS: Ht 162.6 cm; Wt 79.0 kg
[~2019-02-19 02:16] MED LIST changes: +ABIL10 PO; +METF-414 PO; +METO-396 PO; +TRAZ150T78 PO
[2019-02-19 06:05] VITALS: BP 137/81
== END 2019-02-19 06:19 | disposition home or self-care (01) ==
LOC: ER 02:49
DX: R07.89 Other chest pain (principal); I10 Essential (primary) hypertension
CPT/HCPCS: 71045; 99283

== ENCOUNTER 2019-02-20 12:18 | Emergency (ER) | payer MEDICARE, MEDICAID ==
[~2019-02-20] VITALS: Ht 172.7 cm; Wt 91.0 kg
[2019-02-20 14:20] VITALS: BP 138/88
== END 2019-02-20 16:02 | disposition home or self-care (01) ==
LOC: ER 12:18
DX: L25.9 Unspecified contact dermatitis, unspecified cause (principal); B86 Scabies; M54.5 Low back pain
CPT/HCPCS: 99283

== ENCOUNTER 2019-02-20 16:07 | Emergency (ER) | payer MEDICARE, MEDICAID ==
[~2019-02-20] VITALS: Ht 162.6 cm; Wt 91.0 kg
[2019-02-20 16:09] VITALS: BP 143/82
[2019-02-20] MEDS ORDERED: DIPHENHYDRAMINE 25MG CAPSULE PO ONE (19:00)
== END 2019-02-20 20:19 | disposition left against medical advice (07) ==
LOC: ER 16:07
DX: M79.10 Myalgia, unspecified site (principal); Z53.21 Procedure and treatment not carried out due to patient leaving prior to being seen by health care provider
CPT/HCPCS: 99283; Q0163

== ENCOUNTER 2019-02-26 21:02 | Emergency (ER) | payer MEDICARE, MEDICAID ==
[~2019-02-26] VITALS: Ht 165.1 cm; Wt 100.0 kg
[2019-02-26] MEDS ORDERED: MORPHINE SULFATE 4 MG/ML CPJ (NOT FOR IM USE) IV STA (23:16)
[2019-02-26] MEDS ORDERED: ONDANSETRON HCL 4MG/2ML INJ IV STA (23:16)
[2019-02-26 23:46] LABS: BASOPHILS % 0.9 % (0.0-2.0); EOSINOPHILS % 2.8 % (0.0-5.0); HEMATOCRIT. 29.6 % (36.0-48.0); HEMOGLOBIN. 9.8 g/dL (12.0-16.0); LYMPHOCYTES % 35.7 % (20.0-50.0); MEAN CORPUSCULAR HEMOGLOBIN 28.6 pg (28.0-32.0); MEAN CORPUSCULAR VOLUME 86.6 fL (81.0-99.0); MEAN PLATELET VOLUME 8.2 fl (7.4-10.4); MONOCYTES % 9.7 % (2.0-8.0); NEUTROPHILS % 50.9 % (40.0-76.0); PLATELET 276 x1000/uL (130-400); RED BLOOD CELL COUNT 3.42 mill/uL (4.2-5.4); RED CELL DISTRIBUTION WIDTH 15.8 % (11.6-14.6)
[2019-02-26 23:53] LABS: HCG SCREEN NEGATIVE
[2019-02-27 00:02] LABS: CHLORIDE 109 mEq/L (98-107)
[2019-02-27 00:06] LABS: ETHANOL BLOOD < 10 mg/dL
[2019-02-27 00:15] LABS: *AMPHETAMINES SCREEN URINE NEGATIVE (NEGATIVE); *BARBITURATES SCREEN URINE NEGATIVE (NEGATIVE); *BENZODIAZEPINES SCREEN URINE NEGATIVE (NEGATIVE); *COCAINE SCREEN URINE NEGATIVE (NEGATIVE)
[2019-02-27 00:16] LABS: CANNABINOID URINE SCREEN NEGATIVE (NEGATIVE); METHADONE URINE SCREEN NEGATIVE (NEGATIVE); OPIATES URINE SCREEN NEGATIVE (NEGATIVE); PHENCYCLIDINE URINE SCREEN NEGATIVE (NEGATIVE)
[2019-02-27 02:34] VITALS: BP 133/77
[2019-02-27 13:09] LABS: CLARITY URINE CLEAR (CLEAR); COLOR URINE YELLOW (YELLOW); KETONES URINE NEGATIVE (NEGATIVE); LEUKOCYTE ESTERASE URINE NEGATIVE (NEGATIVE); NITRITE URINE NEGATIVE (NEGATIVE); OCCULT BLOOD URINE NEGATIVE (NEGATIVE); PROTEIN URINE 1+ (NEGATIVE); SPECIFIC GRAVITY URINE 1.005 (1.005-1.030); UROBILINOGEN URINE 0.2 E.U./dL (0.2-1.0)
== END 2019-02-27 02:54 | disposition home or self-care (01) ==
LOC: ER 21:02
DX: S93.402A Sprain of unspecified ligament of left ankle, initial encounter (principal); I10 Essential (primary) hypertension; E11.9 Type 2 diabetes mellitus without complications; F31.9 Bipolar disorder, unspecified; F17.200 Nicotine dependence, unspecified, uncomplicated; R30.0 Dysuria; Z79.899 Other long term (current) drug therapy; Z88.8 Allergy status to other drugs, medicaments and biological substances; Z79.84 Long term (current) use of oral hypoglycemic drugs; X58.XXXA Exposure to other specified factors, initial encounter; Y93.89 Activity, other specified; Y92.89 Other specified places as the place of occurrence of the external cause; Y99.8 Other external cause status
CPT/HCPCS: 36415; 71045; 73610; 74176; 80053; 80305; 80320; 81003; 83605; 83690; 83880; 84484; 84703; 85025; 87040; 87086; 93005; 96374; 96375; 99284; J2270; J2405; G0480

== ENCOUNTER 2019-02-27 03:44 | Emergency (ER) | payer MEDICARE, MEDICAID ==
[~2019-02-27] VITALS: Ht 160 cm; Wt 100.0 kg
[2019-02-27 04:46] VITALS: BP 132/80
== END 2019-02-27 05:08 | disposition home or self-care (01) ==
LOC: ER 03:44
DX: R07.89 Other chest pain (principal)
CPT/HCPCS: 99281

== ENCOUNTER 2019-03-12 08:46 | Inpatient (IN) | payer MEDICARE, MEDICAID ==
[~2019-03-12] VITALS: Ht 160 cm; Wt 105.7 kg
[2019-03-12 09:25] LABS: HEMATOCRIT. 29.6 % (36.0-48.0); HEMOGLOBIN. 9.7 g/dL (12.0-16.0); MEAN CORPUSCULAR HEMOGLOBIN 28.7 pg (28.0-32.0); MEAN CORPUSCULAR VOLUME 87.3 fL (81.0-99.0); MEAN PLATELET VOLUME 8.7 fl (7.4-10.4); PLATELET 237 x1000/uL (130-400); RED BLOOD CELL COUNT 3.39 mill/uL (4.2-5.4); RED CELL DISTRIBUTION WIDTH 16.5 % (11.6-14.6)
[2019-03-12 09:32] LABS: CHLORIDE 108 mEq/L (98-107)
[2019-03-12 09:59] LABS: PLATELET ESTIMATE NORMAL
[2019-03-12] MEDS ORDERED: ONDANSETRON HCL 4MG/2ML INJ IV PRN (12:45)
[2019-03-12] MEDS ORDERED: MAGNESIUM/ALUMINUM HYDROXIDE/SIMETHICONE 30ML UDC PO PRN (12:45)
[2019-03-12] MEDS ORDERED: IPRATROPIUM/ALBUTEROL 0.5-3(2.5)MG/3ML NEB NEB PRN (12:45)
[2019-03-12] MEDS ORDERED: ACETAMINOPHEN 325MG TABLET PO PRN (12:45)
[2019-03-12] MEDS ORDERED: CLONIDINE 0.1MG TABLET PO PRN (12:45)
[2019-03-12] MEDS ORDERED: DIVALPROEX SODIUM 500MG ER TABLET PO SCH (13:00)
[2019-03-12] MEDS: DIVALPROEX SODIUM 250MG DR TABLET PO SCH ×2 (13:59→21:47)
[2019-03-12] MEDS: MORPHINE SULFATE 2 MG/ML CPJ (NOT FOR IM USE) IV PRN (13:59)
[2019-03-12] MEDS: QUETIAPINE FUMARATE 25MG TABLET PO SCH (14:00)
[2019-03-12 14:22] LABS: CREATINE KINASE 137 IU/L (26-192); CREATINE KINASE MB FRACTION 1.5 ng/mL (0.5-3.6)
[2019-03-12 16:00] VITALS: BP 133/75
[2019-03-12] MEDS: CARBAMAZEPINE 100MG TABLET CHEW PO SCH (18:30)
[2019-03-12] MEDS: ENOXAPARIN 40MG/0.4ML SYR SUBCUT SCH (18:32)
[2019-03-12 20:00] VITALS: BP 140/74
[2019-03-12] MEDS ORDERED: ARIPIPRAZOLE 10MG TABLET PO SCH (21:00)
[2019-03-12] MEDS: TRAZODONE HCL 50MG TABLET PO SCH (21:46)
[2019-03-12] MEDS: ARIPIPRAZOLE 5MG TABLET PO SCH (21:54)
[2019-03-13] VITALS: BP 136/75
[2019-03-13 00:27] LABS: CREATINE KINASE 97 IU/L (26-192)
[2019-03-13 00:28] LABS: CREATINE KINASE MB FRACTION 1.3 ng/mL (0.5-3.6)
[2019-03-13] MEDS: MORPHINE SULFATE 2 MG/ML CPJ (NOT FOR IM USE) IV PRN (01:33)
[2019-03-13 04:00] VITALS: BP 128/71
[2019-03-13] MEDS ORDERED: DEXTROSE 50% WATER 50ML SYRINGE IV PRN (05:00)
[2019-03-13] MEDS: DIVALPROEX SODIUM 250MG DR TABLET PO SCH ×3 (05:42→21:19)
[2019-03-13] MEDS: BLOOD SUGAR DIAGNOSTIC STRIP TEST SCH ×4 (05:46→20:19)
[2019-03-13] MEDS: INSULIN LISPRO 100 UNITS/ML SUBCUT SCH ×4 (05:56→21:00)
[2019-03-13 07:01] LABS: HEMATOCRIT. 29.3 % (36.0-48.0); HEMOGLOBIN. 9.6 g/dL (12.0-16.0); MEAN CORPUSCULAR HEMOGLOBIN 28.6 pg (28.0-32.0); MEAN CORPUSCULAR VOLUME 86.9 fL (81.0-99.0); MEAN PLATELET VOLUME 8.2 fl (7.4-10.4); PLATELET 254 x1000/uL (130-400); RED BLOOD CELL COUNT 3.37 mill/uL (4.2-5.4); RED CELL DISTRIBUTION WIDTH 16.5 % (11.6-14.6)
[2019-03-13 07:04] LABS: CHLORIDE 106 mEq/L (98-107)
[2019-03-13 07:12] LABS: LDL CHOLESTEROL 69 mg/dL (5-100)
[2019-03-13 07:14] LABS: HDL CHOLESTEROL 45 mg/dL (40-59)
[2019-03-13] MEDS: AMLODIPINE 10MG TABLET PO SCH (08:55)
[2019-03-13] MEDS: CARBAMAZEPINE 100MG TABLET CHEW PO SCH ×2 (08:55→19:37)
[2019-03-13] MEDS: ASPIRIN 81MG EC TABLET PO SCH (08:55)
[2019-03-13] MEDS: QUETIAPINE FUMARATE 25MG TABLET PO SCH (08:55)
[2019-03-13] MEDS: HYDROCODONE/ACETAMINOPHEN 5/325MG TABLET PO PRN (09:00)
[2019-03-13] MEDS: ARIPIPRAZOLE 5MG TABLET PO SCH ×2 (11:12→21:19)
[2019-03-13 12:00] VITALS: BP 136/95
[2019-03-13] MEDS: ENOXAPARIN 40MG/0.4ML SYR SUBCUT SCH (12:55)
[2019-03-13 13:47] LABS: PLATELET ESTIMATE NORMAL
[2019-03-13 16:00] VITALS: BP 133/77
[2019-03-13 20:00] VITALS: BP 122/74
[2019-03-13] MEDS: TRAZODONE HCL 50MG TABLET PO SCH (21:19)
[2019-03-14] VITALS: BP 109/66
[2019-03-14 04:00] VITALS: BP 126/65
[2019-03-14] MEDS: BLOOD SUGAR DIAGNOSTIC STRIP TEST SCH (05:56)
[2019-03-14] MEDS: DIVALPROEX SODIUM 250MG DR TABLET PO SCH (06:01)
[2019-03-14] MEDS: INSULIN LISPRO 100 UNITS/ML SUBCUT SCH (06:02)
[2019-03-14 08:00] VITALS: BP 140/76
[2019-03-14] MEDS: ASPIRIN 81MG EC TABLET PO SCH (08:35)
[2019-03-14] MEDS: HYDROCODONE/ACETAMINOPHEN 5/325MG TABLET PO PRN (08:35)
[2019-03-14] MEDS: QUETIAPINE FUMARATE 25MG TABLET PO SCH (08:35)
[2019-03-14] MEDS: AMLODIPINE 10MG TABLET PO SCH (08:35)
[2019-03-14] MEDS: CARBAMAZEPINE 100MG TABLET CHEW PO SCH (08:36)
[2019-03-14] MEDS: ARIPIPRAZOLE 5MG TABLET PO SCH (08:40)
[2019-03-14 10:21] VITALS: BP 140/76
== END 2019-03-14 11:32 | disposition home or self-care (01) | DRG 206 ==
LOC: ER 08:46 → 8WST 11:24 → EDBEDREQ 11:35 → EDBEDREQTM 11:35 → ENRESERV 12:51
PROVIDERS: ADMIT Hospitalist; ATTEND Hospitalist
DX: M94.0 Chondrocostal junction syndrome [Tietze] (principal); G40.409 Other generalized epilepsy and epileptic syndromes, not intractable, without status epilepticus; E11.9 Type 2 diabetes mellitus without complications; M79.7 Fibromyalgia; I10 Essential (primary) hypertension; F17.210 Nicotine dependence, cigarettes, uncomplicated; E78.5 Hyperlipidemia, unspecified; E78.00 Pure hypercholesterolemia, unspecified; F20.9 Schizophrenia, unspecified; J44.9 Chronic obstructive pulmonary disease, unspecified; F31.9 Bipolar disorder, unspecified; Z98.51 Tubal ligation status; Z79.899 Other long term (current) drug therapy; Z79.84 Long term (current) use of oral hypoglycemic drugs; Z88.8 Allergy status to other drugs, medicaments and biological substances
CPT/HCPCS: 36415; 71045; 80061; 82550; 82553; 82962; 83880; 84484; 93005; 93970; 99285; C1893; J1650; J1815; J2270; J2405

== ENCOUNTER 2019-03-27 09:12 | Emergency (ER) | payer MEDICARE, MEDICAID ==
[~2019-03-27] VITALS: Ht 165.1 cm; Wt 85.0 kg
[2019-03-27] MEDS ORDERED: PERMETHRIN 5% CREAM 60GM TOP ONE (09:45)
[2019-03-27 10:12] LABS: CLARITY URINE CLEAR (CLEAR); COLOR URINE YELLOW (YELLOW); KETONES URINE NEGATIVE (NEGATIVE); LEUKOCYTE ESTERASE URINE 3+ (NEGATIVE); NITRITE URINE NEGATIVE (NEGATIVE); OCCULT BLOOD URINE NEGATIVE (NEGATIVE); PH URINE 5.5 (4.5-8.0); PROTEIN URINE 2+ (NEGATIVE); SPECIFIC GRAVITY URINE 1.006 (1.005-1.030); UROBILINOGEN URINE 0.2 E.U./dL (0.2-1.0)
[2019-03-27 10:27] LABS: *AMPHETAMINES SCREEN URINE NEGATIVE (NEGATIVE); *BARBITURATES SCREEN URINE NEGATIVE (NEGATIVE); *BENZODIAZEPINES SCREEN URINE NEGATIVE (NEGATIVE); *COCAINE SCREEN URINE NEGATIVE (NEGATIVE); METHADONE URINE SCREEN NEGATIVE (NEGATIVE); OPIATES URINE SCREEN NEGATIVE (NEGATIVE)
[2019-03-27 10:28] LABS: CANNABINOID URINE SCREEN NEGATIVE (NEGATIVE); PHENCYCLIDINE URINE SCREEN NEGATIVE (NEGATIVE)
[2019-03-27] MEDS ORDERED: CEFTRIAXONE 1 G PREMIX 50 ML IV ONE (11:00)
[2019-03-27 11:52] LABS: BASOPHILS % 1.5 % (0.0-2.0); HEMATOCRIT. 31.1 % (36.0-48.0); HEMOGLOBIN. 10.4 g/dL (12.0-16.0); LYMPHOCYTES % 32.9 % (20.0-50.0); MEAN CORPUSCULAR HEMOGLOBIN 29.1 pg (28.0-32.0); MEAN CORPUSCULAR VOLUME 86.8 fL (81.0-99.0); MEAN PLATELET VOLUME 8.3 fl (7.4-10.4); MONOCYTES % 8.1 % (2.0-8.0); NEUTROPHILS % 55.5 % (40.0-76.0); PLATELET 286 x1000/uL (130-400); RED BLOOD CELL COUNT 3.58 mill/uL (4.2-5.4)
[2019-03-27 11:59] LABS: CHLORIDE 108 mEq/L (98-107)
[2019-03-27 12:00] LABS: HCG SCREEN NEGATIVE
[2019-03-27] MEDS ORDERED: SODIUM CHLORIDE 0.9% 1,000 ML IV ONE (12:17)
[2019-03-27 12:25] LABS: ETHANOL BLOOD < 10 mg/dL
[2019-03-27] MEDS ORDERED: CARBAMAZEPINE 200MG TABLET PO ONE (12:30)
[2019-03-27 15:24] VITALS: BP 118/68
== END 2019-03-27 16:00 | disposition home or self-care (01) ==
LOC: ER 10:07
DX: G40.909 Epilepsy, unspecified, not intractable, without status epilepticus (principal); N39.0 Urinary tract infection, site not specified; R07.89 Other chest pain; N28.9 Disorder of kidney and ureter, unspecified; B86 Scabies; F31.9 Bipolar disorder, unspecified; J45.909 Unspecified asthma, uncomplicated; J44.9 Chronic obstructive pulmonary disease, unspecified; E78.00 Pure hypercholesterolemia, unspecified; M79.7 Fibromyalgia; E11.9 Type 2 diabetes mellitus without complications; I10 Essential (primary) hypertension; F20.9 Schizophrenia, unspecified; F17.210 Nicotine dependence, cigarettes, uncomplicated; F14.10 Cocaine abuse, uncomplicated; F15.10 Other stimulant abuse, uncomplicated; F12.10 Cannabis abuse, uncomplicated; Z98.51 Tubal ligation status; Z79.84 Long term (current) use of oral hypoglycemic drugs; Z88.8 Allergy status to other drugs, medicaments and biological substances
CPT/HCPCS: 36415; 70450; 71045; 80053; 80156; 80305; 80320; 81003; 84484; 84703; 85025; 93005; 96365; 99284; J0696; G0480

== ENCOUNTER 2019-03-27 16:57 | Emergency (ER) | payer MEDICARE, MEDICAID ==
[~2019-03-27] VITALS: Ht 165.1 cm; Wt 64.0 kg
[2019-03-27 19:38] LABS: BASOPHILS % 1.4 % (0.0-2.0); EOSINOPHILS % 4.1 % (0.0-5.0); HEMATOCRIT. 29.6 % (36.0-48.0); MEAN CORPUSCULAR HEMOGLOBIN 29.1 pg (28.0-32.0); MEAN CORPUSCULAR VOLUME 86.5 fL (81.0-99.0); MEAN PLATELET VOLUME 8.4 fl (7.4-10.4); MONOCYTES % 8.1 % (2.0-8.0); NEUTROPHILS % 45.4 % (40.0-76.0); PLATELET 265 x1000/uL (130-400); RED BLOOD CELL COUNT 3.43 mill/uL (4.2-5.4); RED CELL DISTRIBUTION WIDTH 16.2 % (11.6-14.6)
[2019-03-27 19:45] LABS: CHLORIDE 109 mEq/L (98-107)
[2019-03-27 19:51] LABS: CLARITY URINE CLEAR (CLEAR); COLOR URINE YELLOW (YELLOW); KETONES URINE NEGATIVE (NEGATIVE); LEUKOCYTE ESTERASE URINE 2+ (NEGATIVE); NITRITE URINE NEGATIVE (NEGATIVE); OCCULT BLOOD URINE NEGATIVE (NEGATIVE); PROTEIN URINE 2+ (NEGATIVE); SPECIFIC GRAVITY URINE 1.007 (1.005-1.030); UROBILINOGEN URINE 0.2 E.U./dL (0.2-1.0)
[2019-03-27 20:32] LABS: *AMPHETAMINES SCREEN URINE NEGATIVE (NEGATIVE); *BARBITURATES SCREEN URINE NEGATIVE (NEGATIVE); *BENZODIAZEPINES SCREEN URINE NEGATIVE (NEGATIVE); *COCAINE SCREEN URINE NEGATIVE (NEGATIVE); CANNABINOID URINE SCREEN NEGATIVE (NEGATIVE); OPIATES URINE SCREEN NEGATIVE (NEGATIVE); PHENCYCLIDINE URINE SCREEN NEGATIVE (NEGATIVE)
[2019-03-27 20:33] LABS: METHADONE URINE SCREEN NEGATIVE (NEGATIVE)
[2019-03-27] MEDS ORDERED: CEFTRIAXONE 1 G PREMIX 50 ML IV ONE (21:30)
[2019-03-27 22:17] VITALS: BP 140/87
[2019-03-27 23:00] LABS: ETHANOL BLOOD < 10 mg/dL
== END 2019-03-27 22:19 | disposition home or self-care (01) ==
LOC: ER 16:57
DX: G40.909 Epilepsy, unspecified, not intractable, without status epilepticus (principal); N39.0 Urinary tract infection, site not specified; F31.9 Bipolar disorder, unspecified; F20.9 Schizophrenia, unspecified; E11.9 Type 2 diabetes mellitus without complications; J44.9 Chronic obstructive pulmonary disease, unspecified; E78.00 Pure hypercholesterolemia, unspecified; I10 Essential (primary) hypertension; M79.7 Fibromyalgia; F14.10 Cocaine abuse, uncomplicated; F15.10 Other stimulant abuse, uncomplicated; F12.10 Cannabis abuse, uncomplicated; Z98.51 Tubal ligation status; Z79.84 Long term (current) use of oral hypoglycemic drugs; Z88.8 Allergy status to other drugs, medicaments and biological substances
CPT/HCPCS: 36415; 71045; 80053; 80305; 80320; 81003; 83880; 84484; 85025; 96365; 99284; J0696; G0480

== ENCOUNTER 2019-03-27 23:20 | Emergency (ER) | payer MEDICARE, MEDICAID ==
[~2019-03-27] VITALS: Ht 160 cm; Wt 99.5 kg
[2019-03-28 02:10] LABS: *AMPHETAMINES SCREEN URINE NEGATIVE (NEGATIVE); *BARBITURATES SCREEN URINE NEGATIVE (NEGATIVE); *BENZODIAZEPINES SCREEN URINE NEGATIVE (NEGATIVE)
[2019-03-28 02:11] LABS: *COCAINE SCREEN URINE NEGATIVE (NEGATIVE); CANNABINOID URINE SCREEN NEGATIVE (NEGATIVE); METHADONE URINE SCREEN NEGATIVE (NEGATIVE); OPIATES URINE SCREEN NEGATIVE (NEGATIVE); PHENCYCLIDINE URINE SCREEN NEGATIVE (NEGATIVE)
[2019-03-28 02:18] LABS: EOSINOPHILS % 3.7 % (0.0-5.0); HEMATOCRIT. 29.3 % (36.0-48.0); HEMOGLOBIN. 9.8 g/dL (12.0-16.0); LYMPHOCYTES % 38.1 % (20.0-50.0); MEAN CORPUSCULAR HEMOGLOBIN 28.6 pg (28.0-32.0); MEAN PLATELET VOLUME 8.4 fl (7.4-10.4); MONOCYTES % 10.6 % (2.0-8.0); NEUTROPHILS % 46.6 % (40.0-76.0); PLATELET 265 x1000/uL (130-400); RED BLOOD CELL COUNT 3.41 mill/uL (4.2-5.4); RED CELL DISTRIBUTION WIDTH 15.9 % (11.6-14.6)
[2019-03-28 02:29] LABS: HCG SCREEN NEGATIVE
[2019-03-28 02:46] LABS: CHLORIDE 109 mEq/L (98-107)
[2019-03-28 02:51] LABS: ETHANOL BLOOD < 10 mg/dL
[2019-03-28] MEDS ORDERED: ACETAMINOPHEN 500MG TABLET PO ONE (08:00)
[2019-03-28] MEDS ORDERED: QUETIAPINE FUMARATE 25MG TABLET PO SCH (16:00)
[2019-03-28] MEDS ORDERED: DIVALPROEX SODIUM 500MG ER TABLET PO SCH (17:00)
[2019-03-29 10:15] VITALS: BP 150/102
== END 2019-03-29 10:51 | disposition home or self-care (01) ==
LOC: ER 23:20
DX: R53.1 Weakness (principal); R45.851 Suicidal ideations; F31.9 Bipolar disorder, unspecified; I10 Essential (primary) hypertension; M79.7 Fibromyalgia; J44.9 Chronic obstructive pulmonary disease, unspecified; E11.9 Type 2 diabetes mellitus without complications; F15.10 Other stimulant abuse, uncomplicated; F14.10 Cocaine abuse, uncomplicated; F12.10 Cannabis abuse, uncomplicated; Z75.1 Person awaiting admission to adequate facility elsewhere; Z79.84 Long term (current) use of oral hypoglycemic drugs; Z88.8 Allergy status to other drugs, medicaments and biological substances
CPT/HCPCS: 93005; 99284

== ENCOUNTER 2019-03-29 12:45 | Emergency (ER) | payer MEDICARE, MEDICAID ==
[~2019-03-29] VITALS: Ht 170.2 cm; Wt 85.0 kg
[2019-03-29 12:48] VITALS: BP 133/92
== END 2019-03-29 16:00 | disposition left against medical advice (07) ==
LOC: ER 12:58
DX: Z53.21 Procedure and treatment not carried out due to patient leaving prior to being seen by health care provider (principal)

== ENCOUNTER 2019-04-03 01:17 | Emergency (ER) | payer MEDICARE, MEDICAID ==
[~2019-04-03] VITALS: Ht 167.6 cm; Wt 56.0 kg
[2019-04-03 01:31] VITALS: BP 136/84
== END 2019-04-03 04:59 | disposition left against medical advice (07) ==
LOC: ER 01:38
DX: Z53.21 Procedure and treatment not carried out due to patient leaving prior to being seen by health care provider (principal)
CPT/HCPCS: 93005

== ENCOUNTER 2019-04-03 05:47 | Emergency (ER) | payer MEDICARE, MEDICAID ==
[~2019-04-03] VITALS: Ht 160 cm; Wt 99.0 kg
[2019-04-03 14:49] LABS: BASOPHILS % 1.3 % (0.0-2.0); HEMATOCRIT. 28.1 % (36.0-48.0); HEMOGLOBIN. 9.5 g/dL (12.0-16.0); LYMPHOCYTES % 37.2 % (20.0-50.0); MEAN CORPUSCULAR HEMOGLOBIN 29.1 pg (28.0-32.0); MEAN CORPUSCULAR VOLUME 86.4 fL (81.0-99.0); MEAN PLATELET VOLUME 8.3 fl (7.4-10.4); MONOCYTES % 8.8 % (2.0-8.0); NEUTROPHILS % 48.7 % (40.0-76.0); PLATELET 189 x1000/uL (130-400); RED BLOOD CELL COUNT 3.25 mill/uL (4.2-5.4); RED CELL DISTRIBUTION WIDTH 15.6 % (11.6-14.6)
[2019-04-03 14:55] LABS: CHLORIDE 105 mEq/L (98-107)
[2019-04-03 14:59] LABS: HCG SCREEN NEGATIVE
[2019-04-03 15:01] LABS: ETHANOL BLOOD < 10 mg/dL
[2019-04-03 15:05] LABS: *BARBITURATES SCREEN URINE NEGATIVE (NEGATIVE); *BENZODIAZEPINES SCREEN URINE NEGATIVE (NEGATIVE); *COCAINE SCREEN URINE NEGATIVE (NEGATIVE)
[2019-04-03 15:06] LABS: CANNABINOID URINE SCREEN NEGATIVE (NEGATIVE); METHADONE URINE SCREEN NEGATIVE (NEGATIVE); OPIATES URINE SCREEN NEGATIVE (NEGATIVE); PHENCYCLIDINE URINE SCREEN NEGATIVE (NEGATIVE)
[2019-04-03 15:09] LABS: *AMPHETAMINES SCREEN URINE PRESUMTIVE POSITIVE (NEGATIVE)
[2019-04-03 17:20] VITALS: BP 165/100
== END 2019-04-03 17:33 | disposition home or self-care (01) ==
LOC: ER 05:47
DX: F15.129 Other stimulant abuse with intoxication, unspecified (principal); F14.10 Cocaine abuse, uncomplicated; F12.10 Cannabis abuse, uncomplicated; F41.9 Anxiety disorder, unspecified; F31.9 Bipolar disorder, unspecified; M54.30 Sciatica, unspecified side; F20.9 Schizophrenia, unspecified; F43.10 Post-traumatic stress disorder, unspecified; N18.9 Chronic kidney disease, unspecified; M10.9 Gout, unspecified; J44.9 Chronic obstructive pulmonary disease, unspecified; Z59.0 Homelessness; Z98.51 Tubal ligation status; Z79.84 Long term (current) use of oral hypoglycemic drugs; Z88.8 Allergy status to other drugs, medicaments and biological substances
CPT/HCPCS: 36415; 80305; 80320; 81025; 84703; 99283; G0480

== ENCOUNTER 2019-04-05 00:05 | Emergency (ER) | payer MEDICARE, MEDICAID ==
[~2019-04-05] VITALS: Ht 167.6 cm; Wt 84.0 kg
[2019-04-05 01:54] LABS: CHLORIDE 107 mEq/L (98-107)
[2019-04-05 01:58] LABS: ETHANOL BLOOD < 10 mg/dL
[2019-04-05 01:59] LABS: BASOPHILS % 1.3 % (0.0-2.0); EOSINOPHILS % 3.2 % (0.0-5.0); HEMATOCRIT. 28.5 % (36.0-48.0); HEMOGLOBIN. 9.5 g/dL (12.0-16.0); MEAN CORPUSCULAR HEMOGLOBIN 28.9 pg (28.0-32.0); MEAN CORPUSCULAR VOLUME 86.7 fL (81.0-99.0); MEAN PLATELET VOLUME 8.5 fl (7.4-10.4); MONOCYTES % 10.5 % (2.0-8.0); PLATELET 190 x1000/uL (130-400); RED BLOOD CELL COUNT 3.29 mill/uL (4.2-5.4); RED CELL DISTRIBUTION WIDTH 15.9 % (11.6-14.6)
[2019-04-05 02:37] LABS: CLARITY URINE CLEAR (CLEAR); COLOR URINE YELLOW (YELLOW); KETONES URINE NEGATIVE (NEGATIVE); LEUKOCYTE ESTERASE URINE 2+ (NEGATIVE); NITRITE URINE NEGATIVE (NEGATIVE); OCCULT BLOOD URINE NEGATIVE (NEGATIVE); PROTEIN URINE 2+ (NEGATIVE); SPECIFIC GRAVITY URINE 1.006 (1.005-1.030); UROBILINOGEN URINE 0.2 E.U./dL (0.2-1.0)
[2019-04-05 03:30] VITALS: BP 129/75
[2019-04-05 04:28] LABS: *AMPHETAMINES SCREEN URINE NEGATIVE (NEGATIVE); *BARBITURATES SCREEN URINE NEGATIVE (NEGATIVE); *BENZODIAZEPINES SCREEN URINE NEGATIVE (NEGATIVE); CANNABINOID URINE SCREEN NEGATIVE (NEGATIVE); METHADONE URINE SCREEN NEGATIVE (NEGATIVE); OPIATES URINE SCREEN NEGATIVE (NEGATIVE); PHENCYCLIDINE URINE SCREEN NEGATIVE (NEGATIVE)
[2019-04-05 04:48] LABS: *COCAINE SCREEN URINE PRESUMTIVE POSITIVE (NEGATIVE)
[2019-04-05] MEDS ORDERED: ACETAMINOPHEN 325MG TABLET PO SCH (05:13)
== END 2019-04-05 05:31 | disposition home or self-care (01) ==
LOC: ER 00:05
DX: K29.00 Acute gastritis without bleeding (principal); J06.9 Acute upper respiratory infection, unspecified; M25.572 Pain in left ankle and joints of left foot; E11.9 Type 2 diabetes mellitus without complications; I10 Essential (primary) hypertension; F15.10 Other stimulant abuse, uncomplicated; F14.10 Cocaine abuse, uncomplicated; F17.210 Nicotine dependence, cigarettes, uncomplicated; Z79.84 Long term (current) use of oral hypoglycemic drugs
CPT/HCPCS: 36415; 71045; 73610; 80305; 80307; 80320; 80329; 81003; 81025; 84484; 93005; 99284; G0480

== ENCOUNTER 2019-04-05 08:24 | Emergency (ER) | payer MEDICARE, MEDICAID ==
[~2019-04-05] VITALS: Ht 165.1 cm; Wt 93.0 kg
[2019-04-05 12:23] VITALS: BP 135/91
== END 2019-04-05 15:38 | disposition left against medical advice (07) ==
LOC: ER 08:49
DX: Z53.21 Procedure and treatment not carried out due to patient leaving prior to being seen by health care provider (principal)

== ENCOUNTER 2019-04-05 21:50 | Emergency (ER) | payer MEDICARE, MEDICAID ==
[~2019-04-05] VITALS: Ht 160 cm; Wt 66.0 kg
[2019-04-05 21:58] VITALS: BP 157/80
== END 2019-04-06 00:48 | disposition left against medical advice (07) ==
LOC: ER 21:50
DX: F98.9 Unspecified behavioral and emotional disorders with onset usually occurring in childhood and adolescence (principal); Z53.21 Procedure and treatment not carried out due to patient leaving prior to being seen by health care provider

== ENCOUNTER 2019-04-06 02:24 | Emergency (ER) | payer MEDICARE, MEDICAID ==
[~2019-04-06] VITALS: Ht 165.1 cm; Wt 91.0 kg
[2019-04-06 02:29] VITALS: BP 158/90
== END 2019-04-06 06:00 | disposition left against medical advice (07) ==
LOC: ER 02:24
DX: R07.9 Chest pain, unspecified (principal); Z53.21 Procedure and treatment not carried out due to patient leaving prior to being seen by health care provider

== ENCOUNTER 2019-04-06 07:41 | Emergency (ER) | payer MEDICARE, MEDICAID ==
[2019-04-06 08:00] VITALS: BP 167/98
== END 2019-04-06 09:50 | disposition left against medical advice (07) ==
LOC: ER 08:46
DX: R07.9 Chest pain, unspecified (principal); Z53.21 Procedure and treatment not carried out due to patient leaving prior to being seen by health care provider
CPT/HCPCS: 93005

== ENCOUNTER 2019-04-06 14:09 | Emergency (ER) | payer MEDICARE, MEDICAID ==
[~2019-04-06] VITALS: Ht 172.7 cm; Wt 82.0 kg
[2019-04-06 16:25] VITALS: BP 145/73
== END 2019-04-06 17:15 | disposition home or self-care (01) ==
LOC: ER 14:13
DX: R07.89 Other chest pain (principal); I10 Essential (primary) hypertension; F20.9 Schizophrenia, unspecified; F31.9 Bipolar disorder, unspecified; F12.10 Cannabis abuse, uncomplicated; F14.10 Cocaine abuse, uncomplicated; Z98.51 Tubal ligation status; Z79.899 Other long term (current) drug therapy
CPT/HCPCS: 71045; 93005; 99283

== ENCOUNTER 2019-04-06 18:41 | Emergency (ER) | payer MEDICARE, MEDICAID ==
[~2019-04-06] VITALS: Ht 172.7 cm; Wt 73.0 kg
[2019-04-06 19:01] VITALS: BP 167/96
== END 2019-04-06 19:07 | disposition home or self-care (01) ==
LOC: ER 18:41
DX: R07.9 Chest pain, unspecified (principal); I10 Essential (primary) hypertension; F31.9 Bipolar disorder, unspecified; F20.9 Schizophrenia, unspecified; F12.10 Cannabis abuse, uncomplicated
CPT/HCPCS: 99283

== ENCOUNTER 2019-04-08 20:44 | Emergency (ER) | payer MEDICARE, MEDICAID ==
[~2019-04-08] VITALS: Ht 165.1 cm; Wt 82.0 kg
[2019-04-08 20:51] VITALS: BP 182/101
== END 2019-04-09 00:35 | disposition left against medical advice (07) ==
LOC: ER 20:44
DX: Z53.21 Procedure and treatment not carried out due to patient leaving prior to being seen by health care provider (principal)

== ENCOUNTER 2019-04-15 08:29 | Emergency (ER) | payer MEDICARE, MEDICAID ==
[~2019-04-15] VITALS: Ht 162.6 cm; Wt 110.0 kg
[2019-04-15 08:37] VITALS: BP 148/74
== END 2019-04-15 16:34 | disposition left against medical advice (07) ==
LOC: ER 08:41
DX: Z53.21 Procedure and treatment not carried out due to patient leaving prior to being seen by health care provider (principal)

== ENCOUNTER 2019-04-15 14:51 | Emergency (ER) | payer MEDICARE, MEDICAID | END 2019-04-15 16:16 | disposition left against medical advice (07) | LOC: ER 15:03 | DX: R10.9 Unspecified abdominal pain (principal); Z53.21 Procedure and treatment not carried out due to patient leaving prior to being seen by health care provider ==

== ENCOUNTER 2019-04-15 18:11 | Emergency (ER) | payer MEDICARE, MEDICAID ==
[~2019-04-15] VITALS: Ht 160 cm; Wt 56.0 kg
[2019-04-15 18:18] VITALS: BP 142/89
== END 2019-04-15 21:30 | disposition left against medical advice (07) ==
LOC: ER 18:32
DX: R07.9 Chest pain, unspecified (principal); R06.02 Shortness of breath; Z53.21 Procedure and treatment not carried out due to patient leaving prior to being seen by health care provider

== ENCOUNTER 2019-05-20 16:35 | Emergency (ER) | payer MEDICARE, MEDICAID ==
[~2019-05-20] VITALS: Ht 167.6 cm; Wt 100.0 kg
[2019-05-20 16:46] VITALS: BP 156/89
== END 2019-05-20 18:34 | disposition left against medical advice (07) ==
LOC: ER 16:35
DX: M79.10 Myalgia, unspecified site (principal); Z53.21 Procedure and treatment not carried out due to patient leaving prior to being seen by health care provider

== ENCOUNTER 2019-05-20 21:05 | Emergency (ER) | payer MEDICARE, MEDICAID ==
[~2019-05-20] VITALS: Ht 167.6 cm; Wt 95.4 kg
[2019-05-20 23:48] LABS: BASOPHILS % 0.7 % (0.0-2.0); EOSINOPHILS % 1.2 % (0.0-5.0); HEMATOCRIT. 31.5 % (36.0-48.0); HEMOGLOBIN. 10.5 g/dL (12.0-16.0); LYMPHOCYTES % 24.2 % (20.0-50.0); MEAN CORPUSCULAR HEMOGLOBIN 28.9 pg (28.0-32.0); MEAN CORPUSCULAR VOLUME 86.7 fL (81.0-99.0); MEAN PLATELET VOLUME 8.5 fl (7.4-10.4); MONOCYTES % 8.9 % (2.0-8.0); PLATELET 256 x1000/uL (130-400); RED BLOOD CELL COUNT 3.63 mill/uL (4.2-5.4); RED CELL DISTRIBUTION WIDTH 16.5 % (11.6-14.6)
[2019-05-20 23:54] LABS: CHLORIDE 112 mEq/L (98-107)
[2019-05-20 23:56] LABS: HCG SCREEN NEGATIVE
[2019-05-20 23:57] LABS: ETHANOL BLOOD < 10 mg/dL
[2019-05-21] MEDS ORDERED: ACETAMINOPHEN 325MG TABLET PO STA (00:06)
[2019-05-21 01:48] VITALS: BP 173/94
[2019-05-21] MEDS ORDERED: CLONIDINE 0.1MG TABLET PO ONE (02:00)
[2019-05-21 02:11] LABS: CLARITY URINE CLEAR (CLEAR); COLOR URINE YELLOW (YELLOW); KETONES URINE NEGATIVE (NEGATIVE); LEUKOCYTE ESTERASE URINE NEGATIVE (NEGATIVE); NITRITE URINE NEGATIVE (NEGATIVE); OCCULT BLOOD URINE NEGATIVE (NEGATIVE); PROTEIN URINE 2+ (NEGATIVE); SPECIFIC GRAVITY URINE 1.007 (1.005-1.030); UROBILINOGEN URINE 0.2 E.U./dL (0.2-1.0)
[2019-05-21 02:20] LABS: *AMPHETAMINES SCREEN URINE NEGATIVE (NEGATIVE); *BARBITURATES SCREEN URINE NEGATIVE (NEGATIVE); *BENZODIAZEPINES SCREEN URINE NEGATIVE (NEGATIVE); *COCAINE SCREEN URINE NEGATIVE (NEGATIVE); METHADONE URINE SCREEN NEGATIVE (NEGATIVE); OPIATES URINE SCREEN NEGATIVE (NEGATIVE)
[2019-05-21 02:21] LABS: CANNABINOID URINE SCREEN NEGATIVE (NEGATIVE); PHENCYCLIDINE URINE SCREEN NEGATIVE (NEGATIVE)
== END 2019-05-21 03:27 | disposition home or self-care (01) ==
LOC: ER 21:10
DX: B34.9 Viral infection, unspecified (principal); R19.7 Diarrhea, unspecified; M54.89 Other dorsalgia
CPT/HCPCS: 36415; 71045; 80048; 80305; 80307; 80320; 80329; 81003; 81025; 84484; 84703; 85025; 93005; 99284; G0480

== ENCOUNTER 2019-05-21 04:00 | Emergency (ER) | payer MEDICARE, MEDICAID ==
[~2019-05-21] VITALS: Ht 160 cm; Wt 96.0 kg
[2019-05-21 07:46] VITALS: BP 142/88
== END 2019-05-21 07:48 | disposition home or self-care (01) ==
LOC: ER 04:00
DX: M79.10 Myalgia, unspecified site (principal); E11.22 Type 2 diabetes mellitus with diabetic chronic kidney disease; I12.9 Hypertensive chronic kidney disease with stage 1 through stage 4 chronic kidney disease, or unspecified chronic kidney disease; N18.9 Chronic kidney disease, unspecified; J44.9 Chronic obstructive pulmonary disease, unspecified; F17.210 Nicotine dependence, cigarettes, uncomplicated; F15.10 Other stimulant abuse, uncomplicated; M54.30 Sciatica, unspecified side; Z59.0 Homelessness; Z98.1 Arthrodesis status
CPT/HCPCS: 99281

== ENCOUNTER 2019-05-21 16:59 | Emergency (ER) | payer MEDICARE, MEDICAID ==
[~2019-05-21] VITALS: Ht 160 cm; Wt 95.0 kg
[2019-05-21 18:06] VITALS: BP 168/100
== END 2019-05-21 23:11 | disposition left against medical advice (07) ==
LOC: ER 17:16
DX: Z53.21 Procedure and treatment not carried out due to patient leaving prior to being seen by health care provider (principal)

== ENCOUNTER 2019-08-20 09:44 | Emergency (ER) | payer MEDICARE, MEDICAID ==
[~2019-08-20] VITALS: Ht 162.6 cm; Wt 65.0 kg
[2019-08-20 11:09] LABS: CLARITY URINE CLEAR (CLEAR); COLOR URINE YELLOW (YELLOW); KETONES URINE NEGATIVE (NEGATIVE); LEUKOCYTE ESTERASE URINE 3+ (NEGATIVE); NITRITE URINE NEGATIVE (NEGATIVE); OCCULT BLOOD URINE NEGATIVE (NEGATIVE); PH URINE 5.5 (4.5-8.0); PROTEIN URINE 2+ (NEGATIVE); SPECIFIC GRAVITY URINE 1.007 (1.005-1.030); UROBILINOGEN URINE 0.2 E.U./dL (0.2-1.0)
[2019-08-20 11:37] LABS: *AMPHETAMINES SCREEN URINE NEGATIVE (NEGATIVE); *BARBITURATES SCREEN URINE NEGATIVE (NEGATIVE)
[2019-08-20 11:38] LABS: *BENZODIAZEPINES SCREEN URINE NEGATIVE (NEGATIVE); *COCAINE SCREEN URINE NEGATIVE (NEGATIVE); CANNABINOID URINE SCREEN NEGATIVE (NEGATIVE); METHADONE URINE SCREEN NEGATIVE (NEGATIVE); OPIATES URINE SCREEN NEGATIVE (NEGATIVE); PHENCYCLIDINE URINE SCREEN NEGATIVE (NEGATIVE)
[2019-08-20 11:45] LABS: BASOPHILS % 0.6 % (0.0-2.0); EOSINOPHILS % 0.5 % (0.0-5.0); HEMATOCRIT. 30.1 % (36.0-48.0); HEMOGLOBIN. 10.2 g/dL (12.0-16.0); LYMPHOCYTES % 27.7 % (20.0-50.0); MEAN CORPUSCULAR HEMOGLOBIN 29.1 pg (28.0-32.0); MEAN CORPUSCULAR VOLUME 85.5 fL (81.0-99.0); MONOCYTES % 10.3 % (2.0-8.0); NEUTROPHILS % 60.9 % (40.0-76.0); PLATELET 221 x1000/uL (130-400); RED BLOOD CELL COUNT 3.52 mill/uL (4.2-5.4); RED CELL DISTRIBUTION WIDTH 17.4 % (11.6-14.6)
[2019-08-20 11:48] LABS: CHLORIDE 112 mEq/L (98-107)
[2019-08-20 11:51] LABS: ETHANOL BLOOD 12 mg/dL
[2019-08-20] MEDS ORDERED: ARIPIPRAZOLE 5MG TABLET PO ONE (12:30)
[2019-08-20] MEDS ORDERED: LORAZEPAM 1MG TABLET PO ONE (12:30)
[2019-08-21] MEDS ORDERED: TRAZODONE HCL 50MG TABLET PO SCH (21:00)
[2019-08-21] MEDS ORDERED: QUETIAPINE FUMARATE 25MG TABLET PO SCH (21:00)
[2019-08-21] MEDS ORDERED: AMLODIPINE 10MG TABLET PO ONE (21:15)
[2019-08-21] MEDS ORDERED: CEPHALEXIN 250MG CAPSULE PO ONE (21:15)
[2019-08-21] MEDS ORDERED: ARIPIPRAZOLE 5MG TABLET PO ONE (21:15)
[2019-08-22] MEDS: METFORMIN HCL 500MG TABLET PO SCH ×2 (09:45→17:54)
[2019-08-22] MEDS: CEPHALEXIN 250MG CAPSULE PO SCH ×2 (09:45→17:00)
[2019-08-22 16:50] VITALS: BP 112/74
== END 2019-08-22 18:20 | disposition home or self-care (01) ==
LOC: ER 10:00
DX: F25.8 Other schizoaffective disorders (principal); R45.851 Suicidal ideations; G24.01 Drug induced subacute dyskinesia; N39.0 Urinary tract infection, site not specified; I10 Essential (primary) hypertension; E11.9 Type 2 diabetes mellitus without complications; Z79.84 Long term (current) use of oral hypoglycemic drugs; F15.10 Other stimulant abuse, uncomplicated
CPT/HCPCS: 36415; 80053; 80305; 80320; 81003; 82962; 85025; 99285; G0480

== ENCOUNTER 2019-10-28 15:32 | Emergency (ER) | payer MEDICARE, MEDICAID ==
[~2019-10-28] VITALS: Ht 160 cm; Wt 85.0 kg
[2019-10-28 19:11] VITALS: BP 132/88
== END 2019-10-28 19:13 | disposition home or self-care (01) ==
LOC: ER 15:32
DX: R21 Rash and other nonspecific skin eruption (principal); I10 Essential (primary) hypertension; J44.9 Chronic obstructive pulmonary disease, unspecified; E11.9 Type 2 diabetes mellitus without complications; F15.10 Other stimulant abuse, uncomplicated; N28.9 Disorder of kidney and ureter, unspecified; Z88.6 Allergy status to analgesic agent; Z79.899 Other long term (current) drug therapy; Z88.8 Allergy status to other drugs, medicaments and biological substances
CPT/HCPCS: 99282